=== PATIENT | female | born 1985 | race African-American/Black ===

== ENCOUNTER 2016-06-04 13:20 | Emergency (ER) ==
[2016-06-04 13:29] VITALS: BP 169/90
[2016-06-04 14:48] LABS: MANUAL DIFF NEEDED? NO
--- NOTE | 2016-06-04 14:49 | Diag Imaging Result Document ---
PROCEDURE NAME: CHEST-2 VIEWS - 06/04/2016 CHEST, TWO VIEWS: INDICATION: Shortness of breath. COMPARISON: 07/18/2015. FINDINGS: Reduced lung volumes are again demonstrated. The heart size is within normal limits. There is evidence of previous granulomatous infection. No focal consolidation, effusion, or pneumothorax is identified. IMPRESSION: 1. Stable chest with reduced lung volumes and evidence of previous granulomatous infection. 2. No acute abnormalities are appreciated.
[2016-06-04 14:56] LABS: BASO% 0.4 % (0.0-0.8); EOS# 0.07 X1000 (0.0-0.7); EOS% 1.3 % (0.0-10.0); HEMOGLOBIN 12.6 g/dL (12.0-16.0); IMM GRAN# 0.01 X1000 (0.0-0.04); IMM GRAN% 0.2 % (0.0-0.5); LYMPH# 2.25 X1000 (1.2-3.4); LYMPH% 41.3 % (20.5-51.1); MCH 25.6 PG (27-31); MCHC 31.5 g/dL (33-37); MCV 81.3 FL (81-99); MONO# 0.44 X1000 (0.11-0.59); MONO% 8.1 % (1.7-9.3); MPV 9.6 FL (7.4-10.4); NEUT% 48.7 % (42.2-75.2); PLT 350 X1000 (130-400); RBC 4.92 XMIL (4.2-5.4)
[2016-06-04 15:07] LABS: INR 1.03 (0.86-1.15); PROTIME 13.8 Seconds (12.1-15.5)
[2016-06-04 15:09] LABS: AGAP 8; ALBUMIN 3.6 g/dL (3.5-5.0); ALKALINE PHOSPHATASE 85 U/L (32-104); BUN 8 mg/dL (8-22); CALCIUM 9.3 mg/dL (8.8-10.2); CHLORIDE 103 mmol/L (98-107); CK PROFILE 91 U/L (24-173); COSMO 274; GOT 16 U/L (10-30); GPT 22 U/L (10-36); MAGNESIUM 1.9 mg/dL (1.5-2.7); POTASSIUM 3.9 mmol/L (3.5-5.1); SODIUM 138 mmol/L (136-145); TCO2 26 mmol/L (25-35); TOTAL PROTEIN 7.9 g/dL (6.3-8.3)
--- NOTE | 2016-06-04 15:43 | PROVIDER DOCUMENTATION ---
HPI-General Adult <Becca Valles - Last Filed: 06/04/16 16:06> - General Source: patient - History of Present Illness -Gen Adult Nature of Presenting Problems: Pt. is morbidly obese female that presents with c/o Chest pressure with SOB and nausea that has been present for two days. Pt. reports today it got worse and when she called her doctor was told to come to the ED. Pt. denies any diaphoresis or vomiting. Pt. reports her SOB is worse when Lying flat. Location of Pain/Injury: reports: chest. denies: head, face, mouth, neck, upper extremity, hand(s), abdomen, back, pelvis, genitalia, lower extremity, feet, upper body, lower body, generalized Pain Radiation: reports: no radiation Quality of Pain: reports: pressure. denies: aching, burning, cramping, dull, fullness, indigestion, sharp, stabbing, tearing, throbbing, tightness Severity: reports: mild. denies: moderate, severe Onset/Duration: reports: gradual, 2 days ago Timing: reports: still present. denies: improving, gone now, resolved prior to arrival, intermittent, constant, changing over time, getting worse Context/Activities at Onset: reports: none. denies: recent emotional stress, recent physical stress, recent trauma history, possible bad food, cold exposure , out of country travel Modifying Factors: improves with: nothing Associated Symptoms: reports: chest pain, nausea, shortness of breath. denies: anxiety, arm pain, back/neck pain, constipation, cough, diaphoresis, diarrhea, dizziness, EENT symptoms, fatigue, fever/chills, genitourinary problems, headaches, heartburn, joint pain, loss of appetite, malaise, muscle aches, sinus congestion/drainage, rash, seizure, sensory/motor loss, pain with inspiration, swelling/mass in abdomen, syncope, vomiting, weakness, trouble walking Similar Symptoms Previously?: Yes Recently seen or treated by another doctor?: No <Jeanette Wheeler - Last Filed: 06/04/16 17:18> - General Chief Complaint: Shortness of Breath Stated Complaint: CHEST PAIN/SOB Time Seen by Provider: 06/04/16 15:32 Allergies/Adverse Reactions: Patient Allergies Allergy/AdvReac Type Severity Reaction Status Date / Time No Known Allergies Allergy Verified 07/18/15 20:59 Home Medications: Megestrol Acetate 40 mg PO DAILY 12/13/14 Iron 18 mg PO DAILY 06/06/15 Review of Systems - Adult - REVIEW OF SYSTEMS - ADULT Constitutional: reports: see HPI. denies: chills, fever, fatique Eyes: reports: see HPI. denies: discharge, blurred vision, double vision, eye pain Ears, Nose, Mouth & Throat: reports: see HPI. denies: ear pain, hearing loss, nose pain, loose teeth, mouth swelling, throat swelling Cardiovascular: reports: see HPI, chest pain. denies: edema, irregular heart rate, palpitations, syncope Respiratory: reports: see HPI, shortness of breath. denies: chronic cough, cough, dyspnea on exertion, pleurisy, wheezing Gastrointestinal: reports: see HPI, nausea. denies: abdominal pain, hematemesis , diarrhea, difficulty swallowing, frequent heartburn, vomiting Genitourinary: reports: see HPI. denies: dysuria, discharge, flank pain, hematuria, hesitency, urgency Musculoskeletal: reports: see HPI. denies: bone pain, back pain, joint pain, joint swelling, muscle aches, neck pain Integumentary: reports: see HPI. denies: hives, hair loss, itching, rash, skin thickening Neurological: reports: see HPI. denies: ataxia, headache/migraines, numbness, paresthesia, seizure, tremors Psychiatric: reports: see HPI. denies: anxiety, depression, emotional problems , insomnia, panic attacks, suicidal thoughts Endocrine: reports: see HPI. denies: excessive sweating, cold intolerance, heat intolerance, increased hunger <Jeanette Wheeler - Last Filed: 06/04/16 17:18> Past History - Adult - PAST MEDICAL HISTORY-ADULT Review of Records: reports: Old Records Reviewed, Nursing Assessment Review, Medications Reviewed, Social history reviewed & non-contributory. Major Childhood Illnesses: reports: denies history Cardiovascular: reports: denies history Respiratory: reports: other (Pulmonary Embolus) Gastrointestinal: reports: denies history Obstetrical/Gynecological: reports: denies history Genitourinary: reports: denies history Musculoskeletal: reports: denies history Neurological: reports: denies history Endocrine/Immune: reports: denies history Other Conditions: reports: denies history - PRIOR SURGERIES/PROCEDURES Surgical/Procedure History: reports: none - IMMUNIZATION STATUS Childhood Immunizations: See Nurse Assessment Flu Vaccine: See Nurse Assessment - FAMILY HISTORY Family History: reviewed, not pertinent <Jeanette Wheeler - Last Filed: 06/04/16 17:18> Physical Exam-General - PHYSICAL EXAM-ADULT Initial Vital Signs Reviewed: Yes - CONSTITUTIONAL General Appearance: alert, mild distress, obese. negative: thin, anxious, lethargic, slow to respond, obtunded, combative - EYES Eyes: PERRL/EOMI, pink conjunctivae. negative: conjuctival exudate, photophobia , scleral icterus, subconjunctival hemorrhage - HEAD, EARS, NOSE, MOUTH & THROAT HENMT: normocephalic/atraumatic, moist mucous membranes, normal ENT inspection. negative: angioedema, frontal tenderness, maxillary tenderness - NECK Neck: non-tender, full range of motion, supple, normal inspection. negative: lymphadenopathy, trachial deviation, thyromegaly - RESPIRATORY Respiratory: lungs clear, normal breath sounds. negative: crackles, rales, rhonchi, stridor, wheezing - CARDIOVASCULAR Cardiovascular: normal peripheral pulses, regular rate, rhythm, no edema, no JVD , no murmur. negative: extra beats, friction rub, irregularly irregular - CHEST (BREASTS) Chest/Breast: deferred - GASTROINTESTINAL (ABDOMEN) Abdominal Exam: normal bowel sounds, non tender, soft. negative: distended, guarding, rigid, rebound, tenderness, hernia, mass - GENITOURINARY Female Genitalia/Pelvic Exam: deferred Rectal Exam: deferred Hemoccult Exam: deferred - LYMPHATIC Lymphatic: no adenopathy. negative: axilla node tender, cervical node tenderness - MUSCULOSKELETAL Back Exam: normal inspection, no CVA tenderness, no vertebral tenderness. negative: ecchymosis, muscle spasm, vertebral tenderness Extremity: normal range of motion, non-tender, normal gait, normal inspection. negative: deformity, erythema, inflammation, swelling, tenderness Peripheral Pulses: radial (R): 2+, radial (L): 2+ - SKIN Integumentary: normal color, normal turgor, warm/dry. negative: cyanosis, diaphoresis, ecchymosis, erythema, jaundice, mottled, pallor, petechiae, purpura , rash, swelling, tenderness - NEUROLOGIC Neurologic: grossly normal, no motor/sensory deficits. negative: aphasia, facial droop, focal weakness, motor weakness, sensory deficit - PSYCHIATRIC Psych/Mental Status: normal mood/affect, normal thought content, normal thought process, oriented x 3. negative: anxious, paranoid, tearful <Jeanette Wheeler - Last Filed: 06/04/16 17:18> Progress - EKG 1 Time of EKG reading by physician:: 14:46 EKG Read and Signed by:: Marcos Olivas EKG Interpretation (*Must complete 3 of following elements*): Abnormal (cannot rule out anterior infarct, age undetermined) Rate: 94 Rhythm: normal sinus rhythm Comments: inferior infarct, age undetermined; <Becca Valles - Last Filed: 06/04/16 16:06> - PLAN OF CARE/RESULTS Progress/Plan/Lab Results: Discussed results and plan of care with patient. Patient agrees with plan and verbalizes understanding. Vital Signs Temp Pulse Resp BP Pulse Ox 06/04/16 13:26 98.7 F 106 H 18 169/90 99 No Known Allergies Allergy (Verified 07/18/15 20:59) Megestrol Acetate 40 mg PO DAILY 12/13/14 Iron 18 mg PO DAILY 06/06/15 Laboratory 06/04/16 06/04/16 06/04/16 14:38 14:38 14:38 WBC 5.45 RBC 4.92 Hgb 12.6 Hct 40.0 MCV 81.3 MCH 25.6 L MCHC 31.5 L RDW Std Deviation 13.8 Plt Count 350 MPV 9.6 Immature Gran % (Auto) 0.2 Neut % (Auto) 48.7 Lymph % (Auto) 41.3 [place] % (Auto) 8.1 Eos % (Auto) 1.3 Baso % (Auto) 0.4 Immature Gran # (Auto) 0.01 Neut # (Auto) 2.66 Lymph # (Auto) 2.25 [place] # (Auto) 0.44 Eos # (Auto) 0.07 Baso # (Auto) 0.02 PT 13.8 INR 1.03 APTT (Factor Assay) 26.0 D-Dimer 0.31 Sodium Potassium Chloride Carbon Dioxide Anion Gap BUN Creatinine Estimated GFR/1.73 m2 BUN/Creatinine Ratio Glucose Calculated Osmolality Calcium Magnesium Total Bilirubin AST ALT Alkaline Phosphatase Creatine Kinase Troponin T Ilj-O-Tacpivjnqft Pept 6 Total Protein Albumin Globulin Albumin/Globulin Ratio 06/04/16 06/04/16 14:38 14:38 WBC RBC Hgb Hct MCV MCH MCHC RDW Std Deviation Plt Count MPV Immature Gran % (Auto) Neut % (Auto) Lymph % (Auto) [place] % (Auto) Eos % (Auto) Baso % (Auto) Immature Gran # (Auto) Neut # (Auto) Lymph # (Auto) [place] # (Auto) Eos # (Auto) Baso # (Auto) PT INR APTT (Factor Assay) D-Dimer Sodium 138 Potassium 3.9 Chloride 103 Carbon Dioxide 26 Anion Gap 8 BUN 8 Creatinine 0.7 Estimated GFR/1.73 m2 > 60 BUN/Creatinine Ratio 11 Glucose 98 Calculated Osmolality 274 Calcium 9.3 Magnesium 1.9 Total Bilirubin 0.30 AST 16 ALT 22 Alkaline Phosphatase 85 Creatine Kinase 91 Troponin T < 0.010 Knp-H-Zzysvynmfde Pept Total Protein 7.9 Albumin 3.6 Globulin 4.0 Albumin/Globulin Ratio 1.0 Orders Category Date Time Status Cardiac Monitoring DIRECTED Care 06/04/16 14:10 Active CHEST-2 VIEWS [RAD] Stat Exams 06/04/16 14:10 Draft CBC WITH ELECTRONIC DIFF [HEME] Stat Lab 06/04/16 14:38 Completed CK PROFILE [SP CHEM] Stat Lab 06/04/16 14:38 Completed COMPREHENSIVE METABOLIC PANEL [CHEM] Stat Lab 06/04/16 14:38 Completed D-DIMER PL [COAG] Stat Lab 06/04/16 14:38 Completed MAGNESIUM [CHEM] Stat Lab 06/04/16 14:38 Completed PRO B-NATRIURETIC PEPTIDE Stat Lab 06/04/16 14:38 Completed PROTIME WITH INR PL [COAG] Stat Lab 06/04/16 14:[address] [COAG] Stat Lab 06/04/16 14:38 Completed TROPONIN T Stat Lab 06/04/16 14:38 Completed EKG [EKG] Stat Ther 06/04/16 14:10 Ordered Laboratory Tests 06/04/16 06/04/16 06/04/16 14:38 14:38 14:38 WBC RBC Hgb Hct MCV MCH MCHC RDW Std Deviation Plt Count MPV Immature Gran % (Auto) Neut % (Auto) Lymph % (Auto) [place] % (Auto) Eos % (Auto) Baso % (Auto) Immature Gran # (Auto) Neut # (Auto) Lymph # (Auto) [place] # (Auto) Eos # (Auto) Baso # (Auto) PT INR APTT (Factor Assay) D-Dimer Sodium 138 Potassium 3.9 Chloride 103 Carbon Dioxide 26 Anion Gap 8 BUN 8 Creatinine 0.7 Estimated GFR/1.73 m2 > 60 BUN/Creatinine Ratio 11 Glucose 98 Calculated Osmolality 274 Calcium 9.3 Magnesium 1.9 Total Bilirubin 0.30 AST 16 ALT 22 Alkaline Phosphatase 85 Creatine Kinase 91 Troponin T < 0.010 Agu-B-Nqaxdedrbvq Pept 6 Total Protein 7.9 Albumin 3.6 Globulin 4.0 Albumin/Globulin Ratio 1.0 06/04/16 06/04/16 14:38 14:38 WBC 5.45 RBC 4.92 Hgb 12.6 Hct 40.0 MCV 81.3 MCH 25.6 L MCHC 31.5 L RDW Std Deviation 13.8 Plt Count 350 MPV 9.6 Immature Gran % (Auto) 0.2 Neut % (Auto) 48.7 Lymph % (Auto) 41.3 [place] % (Auto) 8.1 Eos % (Auto) 1.3 Baso % (Auto) 0.4 Immature Gran # (Auto) 0.01 Neut # (Auto) 2.66 Lymph # (Auto) 2.25 [place] # (Auto) 0.44 Eos # (Auto) 0.07 Baso # (Auto) 0.02 PT 13.8 INR 1.03 APTT (Factor Assay) 26.0 D-Dimer 0.31 Sodium Potassium Chloride Carbon Dioxide Anion Gap BUN Creatinine Estimated GFR/1.73 m2 BUN/Creatinine Ratio Glucose Calculated Osmolality Calcium Magnesium Total Bilirubin AST ALT Alkaline Phosphatase Creatine Kinase Troponin T Tow-J-Fiksphcxsik Pept Total Protein Albumin Globulin Albumin/Globulin Ratio - XRAY 1 XRAY Study: Chest XRAY Interpretation: Stable granuloma, NAD ([place]) <Jeanette Wheeler - Last Filed: 06/04/16 17:18> Departure <Becca Valles - Last Filed: 06/04/16 16:06> - Departure Time of Disposition Order: 17:17 Certified Medical Emergency: Emergent <Jeanette Wheeler - Last Filed: 06/04/16 17:18> - Departure DIAGNOSIS: Shortness of breath Disposition: HOME 01 Condition: Stable Additional Instructions: Follow up with primary care physician Return to ED for any concerns or worsening of symptoms ED Follow Up Instructions: You have been treated by a care provider in the Emergency Department. These instructions are being provided to you so you can have an understanding of how to care for yourself upon discharge. Upon discharge from the Emergency Department, you are responsible for making arrangements for follow-up care by a physician of your choice. Take all prescribed medications as directed. Return to the Emergency Department immediately for any new or worsening symptoms. You may call the Physician Referral phone number at [phone] to obtain a list of Physicians who are taking new patients. Attestation - Physician/ Mid-level Attestation Patient care was provided by Mid-level provider ([employer]CH[employer]IC/PA):: Yes Mid-level provider:: Jeanette Wheeler Mid-level documentation review:: The Mid-level provider documentation, treatment plan and medical decision making was reviewed by the physician who agrees with all treatment and medical decision making by the MLP. <Jeanette Wheeler - Last Filed: 06/04/16 17:18> Physician Attestation
--- NOTE | 2016-06-04 19:30 | EKG Report ---
Test Performed on : 06/04/2016 2:46:22 PM Test Reason : CHEST PAIN Blood Pressure : / mmHG Vent. Rate : 094 BPM Atrial Rate : 094 BPM P-R Int : 120 ms QRS Dur : 086 ms QT Int : 356 ms P-R-T Axes : 000 -21 -20 degrees QTc Int : 445 ms Normal sinus rhythm. Inferior infarct , age undetermined Cannot rule out Anterior infarct , age undetermined Abnormal ECG When compared with ECG of 18-JUL-2015 20:48, No significant change was found Unconfirmed Result
== END 2016-06-04 18:47 | disposition home or self-care (01) ==
LOC: P.ED 13:20
DX: R06.02 Shortness of breath (principal); R94.31 Abnormal electrocardiogram [ECG] [EKG]; R07.89 Other chest pain; R11.0 Nausea; E66.01 Morbid (severe) obesity due to excess calories; Z79.899 Other long term (current) drug therapy; Z86.711 Personal history of pulmonary embolism
CPT/HCPCS: 71020; 80053; 82550; 83735; 83880; 84484; 85025; 85379; 85610; 85730; 93005; 99283

== ENCOUNTER 2016-08-13 07:55 | Emergency (ER) ==
[2016-08-13 08:17] VITALS: BP 151/95
[2016-08-13 09:13] LABS: URINE MICRO REVIEW NEEDED? NO; URINE SOURCE CATH
[2016-08-13 09:22] LABS: BILIRUBIN URINE NEGATIVE (NEGATIVE); BLOOD URINE NEGATIVE (NEGATIVE); COLOR YELLOW; GLUCOSE URINE NEGATIVE (NEGATIVE); LEUKOCYTES URINE NEGATIVE (NEGATIVE); NITRITE URINE NEGATIVE (NEGATIVE); PH URINE 5.5; PROTEIN URINE NEGATIVE (NEGATIVE); SP GRAVITY URINE 1.023; TURBIDITY URINE HAZY (CLEAR); UROBILINOGEN URINE NORMAL (NORMAL)
[2016-08-13 09:24] LABS: UR EPITHELIAL CELLS <10 /HPF (<10); URINE BACTERIA 3+ /HPF; URINE CULTURE NEEDED? YES; URINE RBC <10 /HPF (<10); URINE WBC <10 /HPF (<10)
[2016-08-13 09:39] LABS: BASO% 0.2 % (0.0-0.8); EOS# 0.04 X1000 (0.0-0.7); EOS% 0.9 % (0.0-10.0); HEMATOCRIT 42.7 % (37.0-47.0); HEMOGLOBIN 13.4 g/dL (12.0-16.0); LYMPH% 47.9 % (20.5-51.1); MANUAL DIFF NEEDED? NO; MCH 24.9 PG (27-31); MCHC 31.4 g/dL (33-37); MCV 79.2 FL (81-99); MONO# 0.33 X1000 (0.11-0.59); MONO% 7.5 % (1.7-9.3); MPV 9.8 FL (7.4-10.4); NEUT% 43.5 % (42.2-75.2); PLT 345 X1000 (130-400); RBC 5.39 XMIL (4.2-5.4)
[2016-08-13 10:03] LABS: AGAP 15; ALBUMIN 3.7 g/dL (3.5-5.0); ALKALINE PHOSPHATASE 90 U/L (32-104); AMYLASE 40 U/L (20-200); BUN 7 mg/dL (8-22); CALCIUM 9.3 mg/dL (8.8-10.2); CHLORIDE 102 mmol/L (98-107); COSMO 276; GOT 16 U/L (10-30); GPT 23 U/L (10-36); LIPASE 13 U/L (13-60); POTASSIUM 3.8 mmol/L (3.5-5.1); SODIUM 139 mmol/L (136-145); TCO2 22 mmol/L (25-35); TOTAL BILIRUBIN 0.62 mg/dL (0.20-1.00); TOTAL PROTEIN 8.3 g/dL (6.3-8.3)
--- NOTE | 2016-08-13 10:09 | PROVIDER DOCUMENTATION ---
HPI-Abdominal Pain/GI Problem - General Chief Complaint: Abdominal Pain Stated Complaint: ABD PAIN,NAUSEA Time Seen by Provider: 08/13/16 09:59 Source: patient Allergies/Adverse Reactions: Patient Allergies Allergy/AdvReac Type Severity Reaction Status Date / Time No Known Allergies Allergy Verified 08/13/16 09:55 Home Medications: Home Medication List Medication Instructions Recorded Confirmed Last Taken Type Omeprazole [Prilosec] 20 mg PO BID #28 capsule 08/13/16 Unknown Rx - History of Present Illness-ABD Nature of Presenting Problems: 1 week of epigastric and LUQ pain. Mild nausea, occ vomiting- . Feels like a pressure or knot. Sick with cough 2 weeks ago - treated with antibioitics. cough resolved but discomfort persistent. No fever. Abdominal Pain Onset Location: reports: LUQ, epigastric Pain Radiation: reports: no radiation Quality of Pain: reports: pressure Severity in ED: reports: moderate Onset/Duration: reports: 1 week ago Associated Symptoms: reports: nausea. denies: fever/chills Last BM: this morning Dark Stools Present?: reports: none noticed Rectal Bleeding: reports: none Review of Systems - Adult - REVIEW OF SYSTEMS - ADULT Constitutional: reports: no symptoms reported Eyes: reports: no symptoms reported Ears, Nose, Mouth & Throat: reports: no symptoms reported Cardiovascular: reports: no symptoms reported Respiratory: reports: cough (resolved) Gastrointestinal: reports: see HPI Genitourinary: reports: no symptoms reported Musculoskeletal: reports: no symptoms reported Integumentary: reports: no symptoms reported Neurological: reports: no symptoms reported Psychiatric: reports: no symptoms reported Endocrine: reports: no symptoms reported Past History - Adult - PAST MEDICAL HISTORY-ADULT Review of Records: reports: Nursing Assessment Review, Medications Reviewed Major Childhood Illnesses: reports: denies history Cardiovascular: reports: denies history Respiratory: reports: other (Pulmonary Embolus) Gastrointestinal: reports: denies history Obstetrical/Gynecological: reports: denies history Genitourinary: reports: denies history Musculoskeletal: reports: denies history Neurological: reports: denies history Endocrine/Immune: reports: denies history Other Conditions: reports: denies history - PRIOR SURGERIES/PROCEDURES Surgical/Procedure History: reports: none - IMMUNIZATION STATUS Childhood Immunizations: See Nurse Assessment Flu Vaccine: See Nurse Assessment - FAMILY HISTORY Family History: reviewed, not pertinent Physical Exam-General - PHYSICAL EXAM-ADULT Initial Vital Signs Reviewed: Yes - CONSTITUTIONAL General Appearance: appears well, alert, no apparent distress, obese - EYES Eyes: PERRL/EOMI - HEAD, EARS, NOSE, MOUTH & THROAT HENMT: moist mucous membranes, normal ENT inspection - NECK Neck: non-tender, full range of motion, supple, normal inspection - RESPIRATORY Respiratory: chest non-tender, lungs clear, normal breath sounds - CARDIOVASCULAR Cardiovascular: regular rate, rhythm, no edema, no gallop, no JVD, no murmur - CHEST (BREASTS) Chest/Breast: no tenderness - GASTROINTESTINAL (ABDOMEN) Abdominal Exam: normal bowel sounds, soft, no organomegaly, tenderness (mild epigastric and LUQ tenderness w/o rebound) - MUSCULOSKELETAL Back Exam: normal inspection, no CVA tenderness, no vertebral tenderness Extremity: normal range of motion, non-tender - SKIN Integumentary: normal color, normal turgor, warm/dry - NEUROLOGIC Neurologic: grossly normal, no motor/sensory deficits - PSYCHIATRIC Psych/Mental Status: oriented x 3 Progress - PLAN OF CARE/RESULTS Progress/Plan/Lab Results: Laboratory Tests 08/13/16 08/13/16 08/13/16 08:36 08:46 08:59 WBC 4.38 L RBC 5.39 Hgb 13.4 Hct 42.7 MCV 79.2 L MCH 24.9 L MCHC 31.4 L RDW Std Deviation 14.9 H Plt Count 345 MPV 9.8 Immature Gran % (Auto) 0.0 Neut % (Auto) 43.5 Lymph % (Auto) 47.9 [place] % (Auto) 7.5 Eos % (Auto) 0.9 Baso % (Auto) 0.2 Immature Gran # (Auto) 0.00 Neut # (Auto) 1.90 Lymph # (Auto) 2.10 [place] # (Auto) 0.33 Eos # (Auto) 0.04 Baso # (Auto) 0.01 Sodium 139 Potassium 3.8 Chloride 102 Carbon Dioxide 22 L Anion Gap 15 BUN 7 L Creatinine 0.6 Estimated GFR/1.73 m2 > 60 BUN/Creatinine Ratio 12 Glucose 100 Calculated Osmolality 276 Calcium 9.3 Total Bilirubin 0.62 AST 16 ALT 23 Alkaline Phosphatase 90 Total Protein 8.3 Albumin 3.7 Globulin 4.6 Albumin/Globulin Ratio 0.8 Amylase 40 Lipase 13 Urine Source CATH Urine Color YELLOW Urine Turbidity HAZY Urine pH 5.5 Ur Specific [place] 1.023 Urine Protein NEGATIVE Ur Glucose (Stick) NEGATIVE Ur Ketones (Stick) NEGATIVE Urine Blood NEGATIVE Urine Nitrite NEGATIVE Urine Bilirubin NEGATIVE Urobilinogen Dipstick NORMAL Urine Leukocytes NEGATIVE Urine WBC (Auto) <10 Urine RBC (Auto) <10 U Epithel Cells (Auto) <10 Urine Bacteria (Auto) 3+ Orders Category Date Time Status ED: Urine Bedside ORDERED Care 08/13/16 08:26 Active NPO Diet 08/13/16 08:26 Active RENAL STONE SEARCH [CT] Stat Exams 08/13/16 08:38 Taken AMYLASE [CHEM] Stat Lab 08/13/16 08:36 Completed CBC WITH ELECTRONIC DIFF [HEME] Stat Lab 08/13/16 08:59 Completed COMPREHENSIVE METABOLIC PANEL [CHEM] Stat Lab 08/13/16 08:36 Completed LIPASE [CHEM] Stat Lab 08/13/16 08:36 Completed URINALYSIS W/POSS RFLX CULT [URINALYSIS] Stat Lab 08/13/16 08:46 Completed URINE CULTURE [RM] Routine Lab 08/13/16 10:00 Received Famotidine [Pepcid] Med 08/13/16 11:25 Discontinued 40 mg PO NOW ONE Lido/Oswald Alk/Al&mg Hydrox [G.i. Cocktail] Med 08/13/16 11:25 Discontinued 30 ml PO NOW ONE Vital Signs Temp Pulse Resp BP Pulse Ox 08/13/16 08:16 98.5 F 92 H 18 151/95 99 No Known Allergies Allergy (Verified 08/13/16 09:55) Omeprazole [Prilosec] 20 mg PO BID #28 capsule 08/13/16 Dietary Diet NPO Start TueAug 13 08 Laboratory 08/13/16 08/13/16 08/13/16 08:59 08:46 08:36 WBC 4.38 L RBC 5.39 Hgb 13.4 Hct 42.7 MCV 79.2 L MCH 24.9 L MCHC 31.4 L RDW Std Deviation 14.9 H Plt Count 345 MPV 9.8 Immature Gran % (Auto) 0.0 Neut % (Auto) 43.5 Lymph % (Auto) 47.9 [place] % (Auto) 7.5 Eos % (Auto) 0.9 Baso % (Auto) 0.2 Immature Gran # (Auto) 0.00 Neut # (Auto) 1.90 Lymph # (Auto) 2.10 [place] # (Auto) 0.33 Eos # (Auto) 0.04 Baso # (Auto) 0.01 Sodium 139 Potassium 3.8 Chloride 102 Carbon Dioxide 22 L Anion Gap 15 BUN 7 L Creatinine 0.6 Estimated GFR/1.73 m2 > 60 BUN/Creatinine Ratio 12 Glucose 100 Calculated Osmolality 276 Calcium 9.3 Total Bilirubin 0.62 AST 16 ALT 23 Alkaline Phosphatase 90 Total Protein 8.3 Albumin 3.7 Globulin 4.6 Albumin/Globulin Ratio 0.8 Amylase 40 Lipase 13 Urine Source CATH Urine Color YELLOW Urine Turbidity HAZY Urine pH 5.5 Ur Specific [place] 1.023 Urine Protein NEGATIVE Ur Glucose (Stick) NEGATIVE Ur Ketones (Stick) NEGATIVE Urine Blood NEGATIVE Urine Nitrite NEGATIVE Urine Bilirubin NEGATIVE Urobilinogen Dipstick NORMAL Urine Leukocytes NEGATIVE Urine WBC (Auto) <10 Urine RBC (Auto) <10 U Epithel Cells (Auto) <10 Urine Bacteria (Auto) 3+ - CT/MRI 1 CT Study: Abdomen Impression: Normal (no acute findings) - CHANGE OF SHIFT REPORT (ED Provider) Tentative Impression of Patient: suspect gastritis following antibiotics Departure - Departure Time of Disposition Order: 11:30 DIAGNOSIS: Gastritis Disposition: HOME 01 Certified Medical Emergency: Emergent Condition: Stable Additional Instructions: Avoid stomach irritants like caffeine, coffee, alcohol. Take omeprazole( prilosec )daily for 10 days. Drink plenty of fluids. Follow up with your doctor if your symptoms are not much better in 3-4 days. Return to emergency if much worse, unable to keep down fluids or problems with breathing ED Follow Up Instructions: You have been treated by a care provider in the Emergency Department. These instructions are being provided to you so you can have an understanding of how to care for yourself upon discharge. Upon discharge from the Emergency Department, you are responsible for making arrangements for follow-up care by a physician of your choice. Take all prescribed medications as directed. Return to the Emergency Department immediately for any new or worsening symptoms. You may call the Physician Referral phone number at [phone] to obtain a list of Physicians who are taking new patients. Prescriptions: Omeprazole [Prilosec] 20 mg PO BID #28 capsule Referrals: Damon Amin MD [Primary Care Provider] -
[2016-08-13] MEDS ORDERED: PEPCID PO ONE (11:25)
[2016-08-13] MEDS ORDERED: G.I. COCKTAIL PO ONE (11:25)
--- NOTE | 2016-08-13 12:13 | Diag Imaging Result Document ---
PROCEDURE NAME: RENAL STONE SEARCH - 08/13/2016 CT ABDOMEN AND PELVIS WITHOUT CONTRAST: COMPARISON: None available. FINDINGS: There is excessive streak artifact related to body habitus, which somewhat limits sensitivity of this study. There is probably diffuse hepatic steatosis. No definite renal or ureteral stones are identified given the limitations of the study. There is no evidence of hydronephrosis. The appendix is identified and appears normal. The urinary bladder is grossly unremarkable. The remainder of the solid viscera of the abdomen and pelvis and the remainder of the GI tract is essentially unremarkable. No definite focal inflammatory changes, free abdominal gas, or free fluid is identified. IMPRESSION: 1. Limited study due to body habitus. 2. No renal or ureteral stones identified and no evidence of acute obstructive uropathy. 3. Normal appendix. 4. No other definite acute pathology given the limitations of this study.
== END 2016-08-13 12:03 | disposition home or self-care (01) ==
LOC: ED 07:55
DX: K29.70 Gastritis, unspecified, without bleeding (principal); R10.13 Epigastric pain; R10.12 Left upper quadrant pain; R11.0 Nausea; R05 Cough; Z86.711 Personal history of pulmonary embolism; E66.9 Obesity, unspecified
CPT/HCPCS: 74176; 80053; 81001; 82150; 83690; 85025; 87088; 99282

== ENCOUNTER 2016-12-27 09:37 | Inpatient (IN) ==
[2016-12-27] MEDS ORDERED: ZOFRAN IV ONE (10:27)
[2016-12-27] MEDS ORDERED: PROTONIX IV ONE (10:27)
[2016-12-27] MEDS ORDERED: SODIUM CHLORIDE 0.9% INJ ONE (10:27)
[2016-12-27] MEDS ORDERED: NS 1,000 ML IV ONE (10:27)
[2016-12-27 10:39] LABS: MANUAL DIFF NEEDED? NO
[2016-12-27 10:41] LABS: BASO% 0.8 % (0.0-0.8); EOS% 2.7 % (0.0-10.0); HEMATOCRIT 44.9 % (37.0-47.0); HEMOGLOBIN 14.6 g/dL (12.0-16.0); LYMPH# 1.26 X1000 (1.2-3.4); LYMPH% 34.6 % (20.5-51.1); MCH 25.8 PG (27-31); MCHC 32.5 g/dL (33-37); MCV 79.3 FL (81-99); MONO# 0.57 X1000 (0.11-0.59); MONO% 15.7 % (1.7-9.3); MPV 11.6 FL (7.4-10.4); NEUT% 46.2 % (42.2-75.2); PLT 275 X1000 (130-400); RBC 5.66 XMIL (4.2-5.4)
[2016-12-27 11:00] LABS: AGAP 16; ALKALINE PHOSPHATASE 84 U/L (32-104); AMYLASE 83 U/L (20-200); BUN 7 mg/dL (8-22); CHLORIDE 99 mmol/L (98-107); COSMO 284; GOT 47 U/L (10-30); GPT 68 U/L (10-36); LIPASE 120 U/L (13-60); POTASSIUM 3.4 mmol/L (3.5-5.1); SODIUM 143 mmol/L (136-145); TCO2 28 mmol/L (25-35); TOTAL BILIRUBIN 0.72 mg/dL (0.20-1.00); TOTAL PROTEIN 8.5 g/dL (6.3-8.3)
[2016-12-27 11:17] LABS: URINE SOURCE CLEAN CATCH
[2016-12-27 11:21] LABS: BILIRUBIN URINE SMALL (NEGATIVE); BLOOD URINE NEGATIVE (NEGATIVE); COLOR YELLOW; GLUCOSE URINE TRACE mg/dL (NEGATIVE); LEUKOCYTES URINE NEGATIVE (NEGATIVE); NITRITE URINE NEGATIVE (NEGATIVE); PROTEIN URINE 300 mg/dL (NEGATIVE); SP GRAVITY URINE 1.026; TURBIDITY URINE TURBID (CLEAR); UROBILINOGEN URINE 6 mg/dL (NORMAL)
[2016-12-27 11:23] LABS: URINE MICRO REVIEW NEEDED? YES
[2016-12-27 11:24] LABS: UR EPITHELIAL CELLS >10 /HPF (<10); URINE BACTERIA 1+ /HPF; URINE CULTURE NEEDED? YES
--- NOTE | 2016-12-27 12:10 | Diag Imaging Result Doc PS360 ---
CT ABD/PELVIS W/ IV CONT ONLY - 12/27/2016 INDICATION: s/p gastric sleeve pain vomiting TECHNIQUE: A CT dose reduction protocol was used. COMPARISON: 08/13/2016 FINDINGS: The lung bases are clear and the heart size is normal. There are findings compatible with gastric sleeve procedure. No bowel obstruction or inflammation. No free air or free fluid. Normal appendix. The liver, gallbladder, spleen, pancreas, adrenals, and kidneys are normal. Urinary bladder, uterus, ovaries, and rectum are normal. There are moderate degenerative changes of the spine. No acute or suspicious bony lesion. IMPRESSION: No acute disease or complication. Electronically signed by Alex Evans 12/27/2016 12:07 PM
--- NOTE | 2016-12-27 14:04 | PROVIDER DOCUMENTATION ---
This chart was entered by Mian Wick Scribe, acting as scribe for Gretchen Gore MD. HPI-Abdominal Pain/GI Problem - General Chief Complaint: Nausea/Vomiting Stated Complaint: NAUSEA,VOMITING Time Seen by Provider: 12/27/16 10:23 Source: patient Allergies/Adverse Reactions: Patient Allergies Allergy/AdvReac Type Severity Reaction Status Date / Time Penicillins Allergy Unknown Verified 12/27/16 10:30 Home Medications: Home Medication List Medication Instructions Recorded Confirmed Last Taken Type Omeprazole [Prilosec] 20 mg PO BID #28 capsule 08/13/16 Unknown Rx Promethazine HCl [Promethazine HCl] 12/27/16 Unknown History Sucralfate [Carafate] 12/27/16 Unknown History - History of Present Illness-ABD Nature of Presenting Problems: Patient is a 31 y/o F that presents with constant n/v since gastric sleeve procedure was performed at [facility] on 12/08/16. Patient reports having a 30lb plus weight loss since procedure. Reports abdominal pain only when vomiting. Patient denies chills/fever, diarrhea, or shortness breath/chest pain. patient reports darker than normal vomit but denies coffee ground emesis. Patient was advised by PCP to come to the ER for evaluation. reports dark stools as well but not tarry appearing Abdominal Pain Onset Location: reports: generalized abdomen Quality of Pain: reports: aching, cramping Severity in ED: reports: moderate Onset/Duration: reports: gradual, other (2 weeks ago) Timing: reports: still present, constant Activities at Onset: reports: other (recent gastric sleeve 12/08/16) Modifying Factors: worse with: eating Associated Symptoms: reports: nausea, vomiting. denies: constipation, diarrhea , EENT symptoms, fever/chills, genitourinary problems, shortness of breath Similar Symptoms Previously?: No Recently seen or treated by another doctor?: Yes Review of Systems - Adult - REVIEW OF SYSTEMS - ADULT Constitutional: reports: weight loss (30lb weight loss). denies: chills, fever Eyes: reports: no symptoms reported Ears, Nose, Mouth & Throat: reports: no symptoms reported Cardiovascular: denies: chest pain, palpitations, syncope Respiratory: denies: cough, shortness of breath, wheezing Gastrointestinal: reports: abdominal pain (only when vomiting), nausea, vomiting . denies: diarrhea Genitourinary: denies: dysuria, frequency, hesitency Musculoskeletal: denies: back pain, joint pain, neck pain Integumentary: reports: no symptoms reported Neurological: reports: dizziness/vertigo. denies: headache/migraines Psychiatric: reports: no symptoms reported Endocrine: reports: no symptoms reported Hematologic/Lymphatic: reports: no symptoms reported Allergic/Immunologic: reports: no symptoms reported All Other Systems: Reviewed and Negative Past History - Adult - PAST MEDICAL HISTORY-ADULT Review of Records: reports: Old Records Reviewed, Nursing Assessment Review, Medications Reviewed Cardiovascular: reports: blood clots (PE) Endocrine/Immune: reports: anemia (on iron tablets) - PRIOR SURGERIES/PROCEDURES Surgical/Procedure History: reports: recent surgery (gastric sleeve on 12/08/16) , other (d&c, bladder surgery,) - IMMUNIZATION STATUS Childhood Immunizations: See Nurse Assessment Flu Vaccine: See Nurse Assessment - FAMILY HISTORY Family History: reviewed, not pertinent - SOCIAL HISTORY Smoking: quit greater than 1 year, cigarettes Alcohol Use Frequency: occasionally Living Situation: family Physical Exam-General - PHYSICAL EXAM-ADULT Initial Vital Signs Reviewed: Yes - CONSTITUTIONAL General Appearance: alert, mild distress, moderate distress, obese, other (ill appearing) - EYES Eyes: PERRL/EOMI, pale conjunctivae - HEAD, EARS, NOSE, MOUTH & THROAT HENMT: normocephalic/atraumatic, pharynx normal, other (oral mucosa dry) - NECK Neck: full range of motion, normal inspection - RESPIRATORY Respiratory: lungs clear, normal breath sounds, no respiratory distress, no accessory muscle use - CARDIOVASCULAR Cardiovascular: regular rate, rhythm, no edema, no murmur - GASTROINTESTINAL (ABDOMEN) Abdominal Exam: normal bowel sounds, non tender, soft, no organomegaly, no pulsatile mass - MUSCULOSKELETAL Back Exam: no CVA tenderness, no vertebral tenderness Extremity: normal range of motion, normal inspection, no pedal edema Peripheral Pulses: dorsalis-pedis (R): 2+, dorsalis-pedis (L): 2+ - SKIN Integumentary: normal color, warm/dry - NEUROLOGIC Neurologic: traffic expert II-XII nml as tested, no motor/sensory deficits - PSYCHIATRIC Psych/Mental Status: normal mood/affect, normal thought content, normal thought process, oriented x 3 Progress - PLAN OF CARE/RESULTS Progress/Plan/Lab Results: Vital Signs - 8 hr 12/27/16 09:42 Temperature 98.4 F Pulse Rate 94 H Respiratory Rate 14 Blood Pressure 139/84 O2 Sat by Pulse Oximetry 100 Vital Signs Temp Pulse Resp BP Pulse Ox 12/27/16 11:01 98.2 F 81 16 135/94 100 12/27/16 09:42 98.4 F 94 H 14 139/84 100 Penicillins Allergy (Verified 12/27/16 10:30) Unknown Omeprazole [Prilosec] 20 mg PO BID #28 capsule 08/13/16 Promethazine HCl [Promethazine HCl] 12/27/16 Sucralfate [Carafate] 12/27/16 Dietary Diet NPO Start TueDec 27 1027 Laboratory 12/27/16 12/27/16 12/27/16 11:09 10:33 10:33 WBC 3.64 L RBC 5.66 H Hgb 14.6 Hct 44.9 MCV 79.3 L MCH 25.8 L MCHC 32.5 L RDW Std Deviation 15.8 H Plt Count 275 MPV 11.6 H Immature Gran % (Auto) 0.0 Neut % (Auto) 46.2 Lymph % (Auto) 34.6 [place] % (Auto) 15.7 H Eos % (Auto) 2.7 Baso % (Auto) 0.8 Immature Gran # (Auto) 0.00 Neut # (Auto) 1.68 Lymph # (Auto) 1.26 [place] # (Auto) 0.57 Eos # (Auto) 0.10 Baso # (Auto) 0.03 Sodium 143 Potassium 3.4 L Chloride 99 Carbon Dioxide 28 Anion Gap 16 BUN 7 L Creatinine 1.0 H Estimated GFR/1.73 m2 > 60 BUN/Creatinine Ratio 7 Glucose 118 H Calculated Osmolality 284 Calcium 10.0 Total Bilirubin 0.72 AST 47 H ALT 68 H Alkaline Phosphatase 84 Total Protein 8.5 H Albumin 4.0 Globulin 4.5 Albumin/Globulin Ratio 0.9 Amylase 83 Lipase 120 H Urine Source CLEAN CATCH Urine Color YELLOW Urine Turbidity TURBID Urine pH 6.0 Ur Specific [place] 1.026 Urine Protein 300 A Ur Glucose (Stick) TRACE Ur Ketones (Stick) 40 A Urine Blood NEGATIVE Urine Nitrite NEGATIVE Urine Bilirubin SMALL A Urobilinogen Dipstick 6 A Urine Leukocytes NEGATIVE Urine WBC (Auto) 10-20 A Urine RBC (Auto) 10-20 A U Epithel Cells (Auto) >10 A Urine Bacteria (Auto) 1+ Urine Crystals Not Reportable Small Round Cells Not Reportable Urine Casts Not Reportable Urine Yeast-like Cells Not Reportable Orders Category Date Time Status ED: Urine Bedside ORDERED Care 12/27/16 10:28 Active Saline Loc DIRECTED Care 12/27/16 10:27 Active NPO Diet 12/27/16 10:[address] ABD/PELVIS W/ IV CONT ONLY [CT] Stat Exams 12/27/16 10:27 Completed AMYLASE [CHEM] Stat Lab 12/27/16 10:33 Completed CBC WITH ELECTRONIC DIFF [HEME] Stat Lab 12/27/16 10:33 Completed COMPREHENSIVE METABOLIC PANEL [CHEM] Stat Lab 12/27/16 10:33 Completed LIPASE [CHEM] Stat Lab 12/27/16 10:33 Completed URINALYSIS W/POSS RFLX CULT-1 [URINALYSIS] Stat Lab 12/27/16 11:09 Completed URINE CULTURE [RM] Routine Lab 12/27/16 11:25 Received URINE MANUAL MICROSCOPIC [URINALYSIS] Stat Lab 12/27/16 11:09 Completed 0.9% Sodium Chloride Inj [Ns] 1,000 ml Med 12/27/16 10:27 Discontinued IV 999 mls/hr Ondansetron [Zofran] Med 12/27/16 10:27 Discontinued 4 mg IV NOW ONE Pantoprazole [Protonix] Med 12/27/16 10:27 Discontinued 40 mg IV NOW ONE Sodium Chloride 0.9% Med 12/27/16 10:27 Discontinued 10 ml INJ NOW ONE 1226-Hospitalist will be paged for admission Vital Signs Temp Pulse Resp BP Pulse Ox 12/27/16 11:01 98.2 F 81 16 135/94 100 12/27/16 09:42 98.4 F 94 H 14 139/84 100 Penicillins Allergy (Verified 12/27/16 10:30) Unknown Omeprazole [Prilosec] 20 mg PO BID #28 capsule 08/13/16 Promethazine HCl [Promethazine HCl] 12/27/16 Sucralfate [Carafate] 12/27/16 Dietary Diet NPO Start TueDec 27 1027 Laboratory 12/27/16 12/27/1612/27/17 11:09 10:33 10:33 WBC 3.64 L RBC 5.66 H Hgb 14.6 Hct 44.9 MCV 79.3 L MCH 25.8 L MCHC 32.5 L RDW Std Deviation 15.8 H Plt Count 275 MPV 11.6 H Immature Gran % (Auto) 0.0 Neut % (Auto) 46.2 Lymph % (Auto) 34.6 [place] % (Auto) 15.7 H Eos % (Auto) 2.7 Baso % (Auto) 0.8 Immature Gran # (Auto) 0.00 Neut # (Auto) 1.68 Lymph # (Auto) 1.26 [place] # (Auto) 0.57 Eos # (Auto) 0.10 Baso # (Auto) 0.03 Sodium 143 Potassium 3.4 L Chloride 99 Carbon Dioxide 28 Anion Gap 16 BUN 7 L Creatinine 1.0 H Estimated GFR/1.73 m2 > 60 BUN/Creatinine Ratio 7 Glucose 118 H Calculated Osmolality 284 Calcium 10.0 Total Bilirubin 0.72 AST 47 H ALT 68 H Alkaline Phosphatase 84 Total Protein 8.5 H Albumin 4.0 Globulin 4.5 Albumin/Globulin Ratio 0.9 Amylase 83 Lipase 120 H Urine Source CLEAN CATCH Urine Color YELLOW Urine Turbidity TURBID Urine pH 6.0 Ur Specific [place] 1.026 Urine Protein 300 A Ur Glucose (Stick) TRACE Ur Ketones (Stick) 40 A Urine Blood NEGATIVE Urine Nitrite NEGATIVE Urine Bilirubin SMALL A Urobilinogen Dipstick 6 A Urine Leukocytes NEGATIVE Urine WBC (Auto) 10-20 A Urine RBC (Auto) 10-20 A U Epithel Cells (Auto) >10 A Urine Bacteria (Auto) 1+ Urine Crystals Not Reportable Small Round Cells Not Reportable Urine Casts Not Reportable Urine Yeast-like Cells Not Reportable Orders Category Date Time Status ED: Urine Bedside ORDERED Care 12/27/16 10:28 Active Saline Loc DIRECTED Care 12/27/16 10:27 Active NPO Diet 12/27/16 10:[address] ABD/PELVIS W/ IV CONT ONLY [CT] Stat Exams 12/27/16 10:27 Completed AMYLASE [CHEM] Stat Lab 12/27/16 10:33 Completed CBC WITH ELECTRONIC DIFF [HEME] Stat Lab 12/27/16 10:33 Completed COMPREHENSIVE METABOLIC PANEL [CHEM] Stat Lab 12/27/16 10:33 Completed LIPASE [CHEM] Stat Lab 12/27/16 10:33 Completed URINALYSIS W/POSS RFLX CULT-1 [URINALYSIS] Stat Lab 12/27/16 11:09 Completed URINE CULTURE [RM] Routine Lab 12/27/16 11:25 Received URINE MANUAL MICROSCOPIC [URINALYSIS] Stat Lab 12/27/16 11:09 Completed 0.9% Sodium Chloride Inj [Ns] 1,000 ml Med 12/27/16 10:27 Discontinued IV 999 mls/hr Ondansetron [Zofran] Med 12/27/16 10:27 Discontinued 4 mg IV NOW ONE Pantoprazole [Protonix] Med 12/27/16 10:27 Discontinued 40 mg IV NOW ONE Sodium Chloride 0.9% Med 12/27/16 10:27 Discontinued 10 ml INJ NOW ONE Result Diagrams: 12/27/16 10:33 12/27/16 10:33 - CT/MRI 1 CT Study: Abdomen, Pelvis Impression: Normal CT Results: nad per - CONSULTS/PCP/HOSPITALIST Notification #1 *Consult/PCP/Hospitalist*: Nicole FLROES Time Discussed: 12:31 Consult Disposition: Will see in ED, Admit Departure - Departure Date of Disposition Decision: 12/27/16 Time of Disposition Decision: 12:33 DIAGNOSIS: Dehydration Pancreatitis Qualifiers: Chronicity: acute Pancreatitis type: other Acute pancreatitis complication: unspecified Qualified Code(s): K85.80 - Other acute pancreatitis without necrosis or infection Nausea & vomiting Qualifiers: Vomiting type: bilious vomiting Qualified Code(s): R11.14 - Bilious vomiting Disposition: ADMITTED INPATIENT 09 Certified Medical Emergency: Emergent Condition: Stable Referrals and Follow-Ups: Damon Amin MD [Primary Care Provider] - - Critical Care Note This patient required my direct & personal management of CC.: No This chart was documented by the indicated scribe, (Mian Wick, Jerson) and accurately reflects the services I performed and decisions made by me, Gretchen Gore MD, as attested by the provider's signature.
[2016-12-27] MEDS: LEVAQUIN 500 MG/D5W 500 MG/100 ML IVPB IV SCH (16:29)
[2016-12-27] MEDS: NS 1,000 ML IV SCH (16:29)
--- NOTE | 2016-12-27 17:44 | HISTORY AND PHYSICAL ---
PRIMARY CARE PROVIDER: Dr. Amin. The surgeon who performed her gastric sleeve is Dr. Emilio Dorman located in [facility]. CHIEF COMPLAINT: Nausea, vomiting since gastric sleeve placement with 1 week of black tarry stools. HISTORY OF PRESENT ILLNESS: Ms. Atul Parra is a 31-year-old morbidly obese, female who most recently had a gastric sleeve procedure on December [address] Emilio Dorman out of [place], [place]. She started out at a weight of 386 pounds and is now down to 329 pounds. Her only other past medical history other than morbid obesity is a history of a pulmonary emboli in the past. 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 Now she presents with some nausea and vomiting that has been going on since December 08. She noted for the last week she has had black tarry stools and then yesterday or today. She started having a black-colored emesis but prior to that was clear yellow. Her hemoglobin and hematocrit are stable. She does have some mild pancreatitis with elevated lipase of 120. Her amylase is normal at 83. She states that her urine has been dark and occasionally she gets dizzy at times. Her dietary regimen post surgery for the 1st week was clear, for the 2nd week with full liquids and this week she should be on soft but she has only been able to tolerate clears. We will consult Gastroenterology and check stools for blood. No bright blood noted. She denies any pain or fever. Denies shortness of breath. We will admit to the medical floor with IV fluid hydration and a clear liquid diet. PAST MEDICAL HISTORY: Morbid obesity with a BMI of 54.79. History of pulmonary emboli. PAST SURGICAL HISTORY: Gastric sleeve on 12/08/2016, ovarian polyps removed. SOCIAL HISTORY: She is a former smoker. Social alcohol use. Denies illicit drug use. She is and has 1 adopted daughter. FAMILY HISTORY: Mother and father both had diabetes mellitus type 2, hypertension and glaucoma. She had a brother who had a myocardial infarction in 2012. ALLERGIES: Penicillin. HOME MEDICATIONS: Prilosec 20 mg p.o. twice daily. Carafate 1 g q.i.d. and Phenergan 25 mg p.r.n. for nausea and vomiting. She does not have her vitamin supplements listed. She states that she has been unable to hold them down. REVIEW OF SYSTEMS: Fourteen point review of systems were complete and all were negative except for those mentioned above in the HPI. PHYSICAL EXAMINATION: VITAL SIGNS: Temperature 98.4 degrees, heart rate 86, respiratory rate 18, blood pressure 103/55, O2 saturation 100% on room air. She is 5 feet 5 inches tall, 329 pounds. BMI 54.7. GENERAL: Ms. Atul Parra is a 31-year-old morbidly obese, female who is in no acute distress and is able answer questions appropriately. HEENT: Atraumatic, normocephalic. Pupils equal, round, reactive to light. Extraocular movements intact. Mucous membranes are dry. NECK: Body habitus does not allow for assessment of JVD. She is negative for carotid bruits. CARDIOVASCULAR: S1, S2. Regular rate and rhythm. No rubs, gallops, murmurs. PULMONARY: Clear to auscultation. Bilateral breath sounds. No accessory muscle use or work of breathing noted. GASTROINTESTINAL: Soft, nontender, obese and hypoactive bowel sounds x4. SKIN: Warm, dry, intact. Percutaneous puncture sites are healed. Right lower quadrant abdominal old SANYA drain site with dressing and mild oozing from it. No SANYA drain at this time. NEUROLOGIC: A and O x4. Moves all extremities equally. LABORATORY DATA: White blood cells 3000. Hemoglobin 14, hematocrit 44, platelet count 275,000. Sodium 143, potassium 3.4, BUN 7, creatinine is 1.0, glucose 118, calcium 10, total bilirubin 0.72, AST 47, ALT 68. Total protein is 8.5, albumin 4.0 amylase 83, lipase 120. Urinalysis: 300 protein, 40 ketones, small bilirubin, 10-20 white blood cells, 10-20 red blood cells, 1+ bacteria. IMAGING: Abdominopelvic CT: No acute disease or complication. Findings compatible with gastric sleeve procedure. No obstruction or inflammation. No free fluid. No free air. Normal appendix. Moderate degenerative changes of the spine. ASSESSMENT AND PLAN: 1. Intractable nausea, vomiting, secondary to gastric sleeve procedure. Antiemetics p.r.n. No obvious acute findings on the abdominopelvic CT. We will do IV fluid hydration. 2. Mild acute pancreatitis. We will recheck amylase and lipase in the morning. We will do only clear liquid diet and aggressive IV fluid hydration. We will consult. 3. Complaints of black tarry stools with black emesis. Hemoglobin and hematocrit stable. We will go ahead and consult Gastroenterology given that she has had a recent gastric sleeve procedure. 4. Possible urinary tract infection. Urine is dark but denies any dysuria or foul smell. We will start her on Levaquin. 5. Deep venous thrombosis prophylaxis. SCDs. Dictated by SANDRA Live for Alejandro Raya MD cc: SANDRA Live MD Hiteshri S. Bhavsar, MD
[2016-12-28] MEDS: NS 1,000 ML IV SCH ×3 (04:49→23:14)
[2016-12-28 06:29] LABS: BASO% 0.6 % (0.0-0.8); EOS# 0.19 X1000 (0.0-0.7); EOS% 5.7 % (0.0-10.0); HEMATOCRIT 38.3 % (37.0-47.0); HEMOGLOBIN 12.3 g/dL (12.0-16.0); LYMPH# 1.96 X1000 (1.2-3.4); LYMPH% 58.5 % (20.5-51.1); MANUAL DIFF NEEDED? YES; MCH 25.9 PG (27-31); MCHC 32.1 g/dL (33-37); MCV 80.6 FL (81-99); MONO# 0.64 X1000 (0.11-0.59); MONO% 19.1 % (1.7-9.3); NEUT% 16.1 % (42.2-75.2); PLT 201 X1000 (130-400); RBC 4.75 XMIL (4.2-5.4)
[2016-12-28 06:35] LABS: INR 1.12; PROTIME 11.9 Seconds (9.2-11.7); PTT 25.8 Seconds (22.0-36.0)
[2016-12-28 06:40] LABS: AGAP 13; ALBUMIN 3.4 g/dL (3.5-5.0); ALKALINE PHOSPHATASE 65 U/L (32-104); AMYLASE 69 U/L (20-200); BUN 5 mg/dL (8-22); CALCIUM 8.4 mg/dL (8.8-10.2); CHLORIDE 104 mmol/L (98-107); COSMO 284; GOT 33 U/L (10-30); GPT 48 U/L (10-36); LIPASE 104 U/L (13-60); MAGNESIUM 1.4 mg/dL (1.5-2.7); POTASSIUM 3.2 mmol/L (3.5-5.1); SODIUM 144 mmol/L (136-145); TCO2 27 mmol/L (25-35); TOTAL BILIRUBIN 0.73 mg/dL (0.20-1.00)
[2016-12-28 07:32] LABS: EOS 6 % (1-10); LYMPHS 64 % (21-51); MONO 4 % (1-9)
[2016-12-28] MEDS: PRILOSEC PO SCH (10:32)
--- NOTE | 2016-12-28 14:43 | PROGRESS NOTE ---
DATE: 12/28/2016 SUBJECTIVE: Patient reports not having black tarry stools anymore. She denies any dizziness or lightheadedness. She is not vomiting anymore. OBJECTIVE: Vital Signs: Temperature 98.4 degrees, heart rate 80, respiratory rate 18, blood pressure 111/63, O2 saturation 100% on room air. General examination: This is a morbidly obese, 31-year-old female lying in bed, in no acute distress. HEENT: Head is normocephalic and atraumatic. Anicteric sclerae and pale conjunctivae. Mucous membranes moist. Neck: Supple. No JVD noted. No carotid bruits. No lymphadenopathy. Cardiovascular: S1, S2 heard. No murmurs, gallops, or rubs. Regular rate and rhythm. Respiratory: Clear bilaterally to auscultation. No work of breathing or using accessory muscles. Abdomen: Soft, nontender to palpation. Bowel sounds present. No organomegaly. Extremities: No clubbing, cyanosis, or edema. Peripheral pulses present in both legs. Neurological: The patient is alert and oriented x3. Moves 4 extremities. LABORATORY DATA: White cell count 3.35, hemoglobin 10.3, hematocrit 38.3, platelets 201,000, with BMP that is remarkable for potassium 3.2. ASSESSMENT AND PLAN: 1. Suspected gastrointestinal bleeding. The patient reports that she was having intractable nausea and vomiting, and sometimes she noticed some blood on it and also black stools. Hemoglobin is stable so far but we have consulted Gastroenterology to see if this patient needs to have endoscopy to check this recently done gastric sleeve. We will see what they have to say. 2. Urinary tract infection. The patient was complaining of urinary tract infection symptoms like burning on urination, and the urine culture shows gram-negative rods and gram-positive cocci. So at this time we prefer to start this patient on antibiotics, in this case, ceftriaxone. We will go from there. 3. Mild acute pancreatitis. I do not think this patient clinically has pancreatitis because the abdominal exam is very benign and the lipase has dropped to 104, with normal amylase. At this point, we are going to continue checking this patient daily. cc: Ramirez Blank MD
[2016-12-28] MEDS: LEVAQUIN 500 MG/D5W 500 MG/100 ML IVPB IV SCH (17:11)
[2016-12-29] MEDS: ZOFRAN IV PRN ×2 (06:45→22:10)
[2016-12-29] MEDS: NS 1,000 ML IV SCH ×4 (07:42→22:10)
[2016-12-29] MEDS: PRILOSEC PO SCH (08:01)
[2016-12-29 09:03] LABS: MANUAL DIFF NEEDED? NO
[2016-12-29 09:13] LABS: BASO% 0.6 % (0.0-0.8); EOS# 0.18 X1000 (0.0-0.7); EOS% 5.7 % (0.0-10.0); HEMATOCRIT 37.1 % (37.0-47.0); LYMPH# 1.68 X1000 (1.2-3.4); MCH 26.2 PG (27-31); MCHC 32.3 g/dL (33-37); MONO# 0.43 X1000 (0.11-0.59); MONO% 13.6 % (1.7-9.3); MPV 11.7 FL (7.4-10.4); NEUT% 27.1 % (42.2-75.2); PLT 179 X1000 (130-400); RBC 4.58 XMIL (4.2-5.4)
--- NOTE | 2016-12-29 09:28 | PROGRESS NOTE ---
DATE: 12/29/2016 SUBJECTIVE: Patient reports she is still having some black tarry stools. She is not vomiting anymore. She denies any dizziness or lightheadedness. OBJECTIVE: Vital Signs: Temperature 97.9 degrees, heart rate 85, respiratory rate 20, blood pressure 106/55, O2 saturation 100% on room air. General examination: This is a morbidly obese, 31-year-old, female lying in bed in no acute distress. HEENT: Head is normocephalic, atraumatic. Anicteric sclerae and pale conjunctivae. Mucous membranes moist. Neck: Supple. No JVD noted. No carotid bruits. No lymphadenopathy. Cardiovascular exam: S1, S2 heard. No murmurs, gallops, or rubs. Regular rate and rhythm. Respiratory exam: Clear bilaterally to auscultation. No work of breathing or using accessory muscles. Abdomen: Soft, obese, nontender to palpation. Bowel sounds present. No organomegaly. Extremities: No clubbing, cyanosis, or edema. Peripheral pulses present in both legs. Neurological exam: Patient alert and oriented x3. Moves all 4 extremities. LABORATORY DATA: Pending. ASSESSMENT AND PLAN: 1. Suspected gastrointestinal bleeding. The patient reports feeling better for nausea. She is not vomiting anymore. She reports still having some black tarry stools. We have consulted gastroenterology, but apparently this consultation is still pending. There is no note in the computer or note reading in the chart; there are no new orders in the computer as well. We will wait to see if they are planning to do any endoscopy or colonoscopy or not. 2. Urinary tract infection. The patient is complaining of pain upon urination. The urine culture showed strep agalactiae greater than 100,000 colonies and also Escherichia coli almost hassan sensitive. At this time, what we are going to use is levofloxacin which will cover both bacteria and we will go from there. 3. Mild acute pancreatitis. I do not think the patient has acute bronchitis, and physical exam today is pretty benign. Further recommendations to follow according to the clinical situation with the patient. We will see what specialist involved in his care has to say today. cc: MD SANDY Tyler
[2016-12-29 09:33] LABS: AGAP 11; BUN 4 mg/dL (8-22); CALCIUM 8.5 mg/dL (8.8-10.2); CHLORIDE 104 mmol/L (98-107); COSMO 279; SODIUM 142 mmol/L (136-145); TCO2 27 mmol/L (25-35)
[2016-12-29] MEDS: PROTONIX IV SCH ×2 (10:35→22:10)
--- NOTE | 2016-12-29 15:56 | Diag Imaging Result Doc PS360 ---
EXAM: US ABDOMEN-COMPLETE HISTORY: elevated liver enzymes TECHNIQUE: COMPARISON: None. FINDINGS: Normal pancreatic body. The majority of the pancreatic head and tail are obscured. The aorta and inferior vena cava are also obscured. There is fatty infiltration of the liver. It is difficult to penetrate liver. Normal right kidney. No hydronephrosis. The gallbladder and common bile duct are obscured. Spleen is not enlarged. No ascites. Normal left kidney. No hydronephrosis. IMPRESSION: Difficult exam with multiple organs obscured. There is fatty infiltration of the liver. Electronically signed by Sony Freeman 12/29/2016 3:53 PM
[2016-12-29] MEDS: LEVAQUIN 500 MG/D5W 500 MG/100 ML IVPB IV SCH (16:39)
[2016-12-29] MEDS: CARAFATE LIQUID PO SCH (22:10)
[2016-12-30] MEDS: CARAFATE LIQUID PO SCH ×3 (04:56→14:55)
[2016-12-30 05:59] LABS: MANUAL DIFF NEEDED? NO
[2016-12-30] MEDS ORDERED: SODIUM CHLORIDE 0.9% 10 ML ONE (06:27)
[2016-12-30 06:29] LABS: BASO% 0.7 % (0.0-0.8); EOS# 0.16 X1000 (0.0-0.7); EOS% 5.5 % (0.0-10.0); HEMATOCRIT 37.9 % (37.0-47.0); HEMOGLOBIN 12.1 g/dL (12.0-16.0); LYMPH# 1.66 X1000 (1.2-3.4); LYMPH% 57.2 % (20.5-51.1); MCH 26.5 PG (27-31); MCHC 31.9 g/dL (33-37); MCV 82.9 FL (81-99); MONO# 0.37 X1000 (0.11-0.59); MONO% 12.8 % (1.7-9.3); MPV 11.9 FL (7.4-10.4); NEUT% 23.8 % (42.2-75.2); PLT 158 X1000 (130-400); RBC 4.57 XMIL (4.2-5.4)
[2016-12-30 06:32] LABS: AGAP 13; BUN 3 mg/dL (8-22); CALCIUM 8.3 mg/dL (8.8-10.2); CHLORIDE 107 mmol/L (98-107); COSMO 283; POTASSIUM 3.3 mmol/L (3.5-5.1); SODIUM 144 mmol/L (136-145); TCO2 24 mmol/L (25-35)
[2016-12-30] MEDS ORDERED: XYLOCAINE-MPF 2% ONE (07:13)
[2016-12-30] MEDS ORDERED: DIPRIVAN 1% 0 MG/0 ML BOTTLE ONE (07:17)
--- NOTE | 2016-12-30 08:09 | PROGRESS NOTE ---
DATE: 12/29/2016 SUBJECTIVE: The patient is currently resting in bed. She complains of nausea. Denies any vomiting today, but she has intermittent constipation. She denies any vomiting blood or passing blood in the stools. She had a recent gastric sleeve surgery done on 2016 at [facility] in [place]. She has seen the surgeon on the day after the surgery. Since then, has not seen the surgeon. Her surgeon is Dr. Dorman. Since being in the hospital , she has been on IV fluids and IV PPIs with fair response. She denies any fevers, rigors, or chills. OBJECTIVE: Vital signs: Temperature 98.2, pulse rate of 76, respiratory rate 18, blood pressure 100/52, saturating 100% on room air. Body weight of 349 pounds 1.2 ounces, BMI of 58 kg/m2. General: Patient is morbidly obese, lying in bed, in no acute distress. HEENT : No pallor. No icterus. Pupils equal, react to light. Neck: Supple. Abdomen: Morbidly obese. Soft, mild discomfort. No rebound or guarding. Bowel sounds heard. Extremities: No cyanosis, clubbing, edema. Neurologic: She is alert, awake, oriented. LABORATORY AND IMAGING: Hemoglobin and hematocrit is 12 and 37.1, white blood 3.17, platelet count of 179,000, MCV of 81. Sodium 130, potassium 3, chloride 104, bicarb 27, anion gap 11, BUN of 4, creatinine 0.7, glucose of 87, calcium 8.5, liver enzymes of AST 33, ALT 48, alkaline phosphatase 60, albumin 3.4, lipase of 104, amylase 59. TSH 1.47. Her urinalysis also showed positive protein, 10 to 20 white cells, 10 to 20 red cells. Urine culture showed strep agalactiae, group B and E. coli sensitive to Levaquin. Stool for occult blood is positive. Patient had CT scan of the abdomen and pelvis done on 12/27/2016 which showed no acute disease or complications. Findings compatible with gastric sleeve procedure. No bowel obstruction or inflammation. No free air or free fluid. Normal appendix. Moderate degeneration of the spine. Ultrasound of the abdomen done today showed fatty infiltration of liver. The gallbladder and bile duct are obscured. The head of the pancreas is obscured. No ascites. Normal left kidney. No hydronephrosis. IMPRESSION AND PLAN: 1. Abdominal pain, nausea, vomiting, status post gastric sleeve procedure on 04/2017 at [facility] in [place] by Dr. Dorman. In this regard, we will keep her on supportive treatment with IV fluids, IV normal saline 100 mL/hour. We will give her IV antiemetics with IV Zofran 4 mg IV every 4 hours. 2. We will keep her on Protonix 40 mg IV b.i.d. 3. We will keep her on Carafate 1 g 6 hours. 4. The patient will be continued on Levaquin for urinary tract infection with E. coli and strep agalactiae group B. 5. We will check acute hepatitis panel, as the patient has elevated liver enzymes. 6. We will schedule patient for EGD tomorrow under anesthesia. The patient will think about the possible EGD tomorrow if she is still symptomatic throughout the night. The risks, benefits, indications and alternatives discussed with the patient. cc: MD Damon Tyler MD Manish Arora, MD Lee A. Schmitt, MD MTDD
[2016-12-30] MEDS ORDERED: DULCOLAX PR ONE (09:15)
[2016-12-30] MEDS: NS 1,000 ML IV SCH (09:47)
--- NOTE | 2016-12-30 10:58 | PROGRESS NOTE ---
DATE: 12/30/2016 SUBJECTIVE: Patient reports not having any more tarry stools for the last couple of days. She is not vomiting anymore. She was trying a clear liquid diet yesterday and she was doing fine. OBJECTIVE: Vital Signs: Temperature 97.7 degrees, heart rate 72, respiratory rate 18, blood pressure 124/66, O2 saturation 100% on room air. General Examination: This is a morbidly obese, 31-year-old, female lying in bed, in no acute distress. HEENT: Head is normocephalic and atraumatic. Anicteric sclerae. [place] conjunctivae. Mucous membranes moist. Neck: Supple. No JVD noted. No carotid bruits. No lymphadenopathy. No thyromegaly. Cardiovascular Examination: S1 and S2 heard. No murmurs, gallops, or rubs. Regular rate and rhythm. Respiratory Examination: Clear bilaterally to auscultation. No work of breathing or using accessory muscles. Abdomen: Soft, obese, nontender to palpation. A little bit distended. Bowel sounds present. No organomegaly. Extremities: No clubbing, cyanosis, or edema. Peripheral pulses present in both legs. Neurological Examination: Patient is alert and oriented x3. Moves 4 extremities. Laboratory Data: White cell count 2.9, hemoglobin 12.1, hematocrit 37.9, with platelets 158,000. The BMP is unremarkable except potassium 3.3. ASSESSMENT AND PLAN: 1. Suspected gastrointestinal bleeding. The patient reported no more episodes of black tarry stools for the last 2 days and not vomiting anything since yesterday. Dr. Isabel, who is on board, has been able to contact Dr. Kunz, primary surgeon, who performed the gastric bypass. He recommends to do a Gastrografin swallowing study to see if there is any gastric leak versus obstruction. We are going to do that exam today considering that this patient is nothing per oral. If the examination is negative, he recommends to place this patient on Decadron and also Emend which is an antiemetic. If the examination is positive for leaking, definitely she will need to be transferred to [facility] in [place]. We will follow the results of that exam. 2. Urinary tract infection. The patient is on levofloxacin for Escherichia coli and also Streptococcus agalactiae urinary tract infection. 3. Mild acute pancreatitis. The patient is stable. Not complaining of any abdominal pain and the physical examination is benign. Overall, this patient is stable. Hemoglobin is stable so will see what that exam shows. We will make further plans depending upon those results. cc: Ramirez Blank MD
[2016-12-30 10:59] LABS: HEPATITIS PROFILE ACUTE SEE COMMENTS
[2016-12-30] MEDS: ZOFRAN IV PRN ×2 (11:07→15:52)
[2016-12-30] MEDS: PROTONIX IV SCH (11:07)
--- NOTE | 2016-12-30 12:10 | Diag Imaging Result Doc PS360 ---
EXAM: GI SERIES WITH WATER-SOLUBLE CONTRAST SWALLOW INDICATION: rule out gastric sleeve leak vs obstruction TECHNIQUE: Diluted Omnipaque contrast was administered orally under fluoroscopy. Spot images were obtained. COMPARISON: None. FINDINGS: There are multiple metallic lucy along the stomach from a very recent gastric sleeve surgery. Contrast filled the gastric remnant normally. There is no abnormal contrast extravasation to indicate leak. Contrast was seen flowing into the small bowel. There was no evidence of obstruction. IMPRESSION: No evidence of abnormal contrast extravasation from the surgical site and no evidence of obstruction. Electronically signed by Dc Sparrow 12/30/2016 12:07 PM
[2016-12-30] MEDS: POTASSIUM CHLORIDE 20 MEQ/SWI 20 MEQ/100 ML IVPB IV SCH ×2 (12:42→14:54)
--- NOTE | 2016-12-30 13:01 | PROGRESS NOTE ---
DATE: 12/30/2016 ATTENDING PHYSICIAN: Dr. Kothari. PRIMARY CARE PHYSICIAN: Dr. Amin. PRIMARY SURGEON: Gastric bypass surgeon, Dr. Kunz at [facility]. SUBJECTIVE: Patient is currently resting in bed. Her nausea has improved a little bit. She denies any vomiting. She had not eaten anything this morning. I have spoken with Dr. Barker, her gastric bypass surgeon at [facility] in [place] this morning. We discussed the situation with him. He suggested performing a Gastrografin swallow study to evaluate for any kind of leak or obstruction. He also suggested the patient to try on Decadron Emend if her gastric leak and obstruction ruled out. If the patient does have any kind of leak or obstruction, the patient may need to be transferred to [facility] for further management. In the interim the patient denies any fevers, rigors, chills. She does have constipation and had not had a good bowel movement for many days but that is chronic for her. PHYSICAL EXAMINATION: Temperature 97.7 degrees, pulse rate of 74, respiratory rate 18, blood pressure 124/60, saturating 100% on room air. Body weight of 349 pounds 11.2 pounds. General Appearance: Obese, lying in bed, in no acute distress. HEENT: No pallor. No icterus. Neck: Supple. Abdomen: Is obese. Mild discomfort in the epigastrium. No rebound. No guarding. Bowel sounds are present. Extremities: No cyanosis, clubbing, and edema. Neurologic: She is alert, awake, oriented. LABS: Hemoglobin and hematocrit is 12.1 and 37.9, white count of 2.9, platelet count of 158,000. MCV of 82.9. Sodium 141, potassium 3.3, chloride 107, bicarb 24, anion gap 13, BUN of 3, creatinine 0.6, glucose of 85. Calcium is 8.3. Amylase of 69, lipase of 104. Hepatitis panel is nonreactive. CT of the abdomen and pelvis no acute disease or complication. The liver, gallbladder, spleen, pancreas, adrenal and kidneys are normal. Ultrasound was not of much help because of body habitus. IMPRESSION AND PLAN: 1. Suspected GI bleeding and intractable nausea, status post gastric sleeve surgery. In this regard, since I have spoken to Dr. Arnold at [facility] we will perform Gastrografin swallow study to evaluate for any leak or obstruction. Based on that further plan will be made and we will keep her on IV fluids, IV antiemetics. 2. She has a UTI. She will continue on Levaquin for now. 3. Mildly elevated lipase. It could be related to recent surgery but the pancreas looked normal on the CAT scan. 4. We will hold off on doing any kind of endoscopic intervention at this time. Further recommendations to follow pending the above. cc: Jeancarlos Isabel MD MTDD
[2016-12-30 13:46] VITALS: BP 122/70
[2016-12-30] MEDS ORDERED: POTASSIUM CHLORIDE 20% LIQUID PO ONE (15:13)
[2016-12-30] MEDS ORDERED: DECADRON IV ONE (15:15)
--- NOTE | 2016-12-30 17:59 | DISCHARGE SUMMARY ---
ADMISSION DATE: 12/27/2016 DISCHARGE DATE: 12/30/2016 CONSULTATIONS: None. PERTINENT PROCEDURES: 1. Abdomen and pelvis CT showed no acute disease or complication. 2. Abdominal ultrasound. It was difficult to examine with multiple organs obscured. There is fatty infiltration of the liver. 3. Upper GI/barium swallow showed no evidence of abnormal contrast extravasation from the surgical site and no evidence of obstruction. DISCHARGE DIAGNOSES: 1. Suspected GI bleed with intractable nausea status post gastric sleeve surgery. Dr. Isabel has spoken with Dr. Dorman at [facility] in [place] who did perform. They did perform an Gastrografin swallow to evaluate for any leak or obstruction. None was identified. She is discharged home today to follow up with Dr. Dorman at [facility]. 2. Urinary tract infection. Patient will continue on p.o. antibiotics. Mildly elevated lipase could be secondary to recent surgery. Pancreas normal on CT. HOSPITAL COURSE: Ms. Parra is a 31-year-old, morbidly obese, female, who recently had a gastric sleeve procedure on December [address] Emilio Dorman out of [place] at [facility]. She started out at 386 pounds and is now down to 329 pounds. Her only other past medical history other than morbid obesity was pulmonary emboli in the past. 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 She presented to the ED with nausea and vomiting that had been ongoing since December 08. She noted for the last week to have black tarry stools and then the day before or the day of her admission she started having black-colored emesis, but prior to that it was clear yellow. Her hemoglobin and hematocrit was stable. She had some mild pancreatitis with an elevated lipase of 120. Her amylase was normal at 83. She states her urine had been dark and she occasionally gets dizzy. Her dietary regimen post the first week of surgery. The second 2nd week was full liquids. For this week she should be on a soft diet but she has only been able to tolerate clears. GI was consulted. Occult stools were positive. She did have an E. coli UTI. She was given antiemetics p.r.n. and started on IV fluids. We did obtain an abdominal and pelvis CT. She was on Protonix on IV antibiotics for her UTI and Carafate. Dr. Isabel spoke with her surgeon at [facility]. He recommended a Gastrografin swallow study to evaluate for any leak or obstruction. There was no evidence of any abnormal contrast extravasation from the surgical site. No evidence of obstruction. She has had no more episodes of black tarry stools. No vomiting. Since the recommended study was negative, the doctor from [facility] recommended to place the patient on Decadron and Emend which is an antiemetic. She continued to tolerate a clear liquid diet. She is being discharged today by Dr. Kothari. VITAL SIGNS AT TIME OF DISCHARGE: Temperature is 98.3 degrees, heart rate 83, respirations 20, blood pressure 122/70, O2 is 100% on room air. DISCHARGE DIET: Clear liquids. DISCHARGE MEDICATIONS: 1. Emend 40 mg p.o. daily p.r.n. 2. Calcium 500 mg chewable tablet 1 each p.o. daily. 3. B12 injections 1000 mg injected as directed. 4. [place] 7.5/325 p.o. q.6 hours p.r.n. pain. 5. Prilosec 20 mg p.o. b.i.d. 6. Carafate 1 g p.o. daily. FOLLOWUP: Ms. Parra is being discharged home with self-care. She is to follow up with her primary surgeon, Dr. Dorman at [facility] as instructed. Take all medications as prescribed. Continue to follow her previous postoperative instructions. She can return to the ED for any worsening of symptoms. Dictated by SANDRA Sheriff for Ramirez Blank MD cc: MD Damon Tyler MD
== END 2016-12-30 17:14 | disposition home or self-care (01) ==
LOC: ED 09:37 → 4N 09:38 → SUATTDRO 09:38
PROVIDERS: ATTEND Internal Medicine

== ENCOUNTER 2017-01-15 17:55 | Inpatient (IN) ==
[2017-01-15 18:44] LABS: MANUAL DIFF NEEDED? NO
[2017-01-15 18:49] LABS: BASO% 0.4 % (0.0-0.8); EOS# 0.07 X1000 (0.0-0.7); EOS% 1.5 % (0.0-10.0); HEMATOCRIT 44.6 % (37.0-47.0); HEMOGLOBIN 14.5 g/dL (12.0-16.0); MCHC 32.5 g/dL (33-37); MCV 79.9 FL (81-99); MONO# 0.61 X1000 (0.11-0.59); MONO% 13.2 % (1.7-9.3); MPV 11.5 FL (7.4-10.4); NEUT% 43.9 % (42.2-75.2); PLT 263 X1000 (130-400); RBC 5.58 XMIL (4.2-5.4)
[2017-01-15 19:10] LABS: AGAP 20; ALBUMIN 4.1 g/dL (3.5-5.0); ALKALINE PHOSPHATASE 71 U/L (32-104); AMYLASE 48 U/L (20-200); BUN 7 mg/dL (8-22); CALCIUM 9.7 mg/dL (8.8-10.2); CHLORIDE 104 mmol/L (98-107); COSMO 289; GOT 19 U/L (10-30); GPT 32 U/L (10-36); LIPASE 53 U/L (13-60); POTASSIUM 3.3 mmol/L (3.5-5.1); SODIUM 147 mmol/L (136-145); TCO2 23 mmol/L (25-35); TOTAL BILIRUBIN 0.64 mg/dL (0.20-1.00); TOTAL PROTEIN 8.1 g/dL (6.3-8.3)
[2017-01-15 19:58] LABS: URINE CULTURE NEEDED? NO; URINE MICRO REVIEW NEEDED? NO; URINE SOURCE CATH
[2017-01-15 20:02] LABS: BILIRUBIN URINE MODERATE (NEGATIVE); BLOOD URINE MODERATE (NEGATIVE); COLOR YELLOW; GLUCOSE URINE NEGATIVE (NEGATIVE); LEUKOCYTES URINE NEGATIVE (NEGATIVE); NITRITE URINE NEGATIVE (NEGATIVE); PH URINE 6.5; PROTEIN URINE 100 mg/dL (NEGATIVE); SP GRAVITY URINE 1.033; TURBIDITY URINE TURBID (CLEAR); UROBILINOGEN URINE 6 mg/dL (NORMAL)
[2017-01-15 20:03] LABS: UR EPITHELIAL CELLS <10 /HPF (<10); URINE BACTERIA NEGATIVE /HPF; URINE RBC TNTC /HPF (<10); URINE WBC <10 /HPF (<10)
[2017-01-15] MEDS ORDERED: ZOFRAN IV ONE (20:21)
[2017-01-15] MEDS ORDERED: BENADRYL IV ONE (20:21)
[2017-01-15] MEDS ORDERED: MORPHINE IV ONE (20:21)
[2017-01-15] MEDS ORDERED: NS 1,000 ML IV ONE (20:21)
[2017-01-15] MEDS ORDERED: REGLAN IV ONE (20:21)
--- NOTE | 2017-01-15 20:31 | PROVIDER DOCUMENTATION ---
HPI-Abdominal Pain/GI Problem - General Chief Complaint: Nausea/Vomiting Stated Complaint: abd pain, nausea Time Seen by Provider: 01/15/17 20:10 Source: patient, old records Allergies/Adverse Reactions: Patient Allergies Allergy/AdvReac Type Severity Reaction Status Date / Time Penicillins Allergy Unknown Verified 01/15/17 18:33 Home Medications: Home Medication List Medication Instructions Recorded Confirmed Last Taken Type Cyanocobalamin (Vitamin B-12) 1,000 mcg IJ DIRECTED 12/27/16 01/15/17 1 Day Ago History [Cyanocobalamin Injection] Ondansetron [Zofran Odt] 4 mg PO Q8H PRN 01/15/17 01/15/17 01/15/17 History - History of Present Illness-ABD Nature of Presenting Problems: This pt, who had a gastric sleeve procedure in November, presents today c complaints of intractable n/v. She was admitted 3 weeks ago to his hospital for similar problems. At d/c she felt somewhat better but her symptoms never fully improved. She called her surgeon and was advised to attempt a clear liquid diet but she is unable to hold down any fluids without vomiting. No other issues or complaints. Abdominal Pain Onset Location: reports: generalized abdomen Quality of Pain: reports: aching, cramping Severity in ED: reports: moderate Onset/Duration: reports: other (see hpi) Timing: reports: still present, getting worse Associated Symptoms: reports: nausea, vomiting Last BM: unsure Dark Stools Present?: reports: none noticed Rectal Bleeding: reports: none Rectal Pain: reports: none Emesis Description: reports: clear Bruising or Bleeding Gums?: No Similar Symptoms Previously?: Yes Recently seen or treated by another doctor?: Yes Review of Systems - Adult - REVIEW OF SYSTEMS - ADULT Constitutional: reports: santiago. denies: chills, fever Eyes: reports: no symptoms reported. denies: discharge, dry eyes Ears, Nose, Mouth & Throat: reports: no symptoms reported. denies: ear discharge, ear pain Cardiovascular: reports: no symptoms reported. denies: chest pain, edema Respiratory: reports: no symptoms reported. denies: chronic cough, cough Gastrointestinal: reports: abdominal pain, nausea, vomiting. denies: diarrhea, difficulty swallowing, rectal bleeding Genitourinary: reports: no symptoms reported. denies: dysuria, discharge Musculoskeletal: reports: no symptoms reported. denies: bone pain, back pain Integumentary: reports: no symptoms reported. denies: hives, hair loss Neurological: reports: no symptoms reported. denies: ataxia, dizziness/vertigo Psychiatric: reports: no symptoms reported. denies: anxiety, anti-depressant use Endocrine: reports: no symptoms reported Hematologic/Lymphatic: reports: no symptoms reported Allergic/Immunologic: reports: no symptoms reported All Other Systems: Reviewed and Negative Past History - Adult - PAST MEDICAL HISTORY-ADULT Review of Records: reports: Old Records Reviewed, Nursing Assessment Review, Medications Reviewed, Social history reviewed & non-contributory. Major Childhood Illnesses: reports: denies history Cardiovascular: reports: blood clots (PE) Respiratory: reports: other (Pulmonary Embolus) Gastrointestinal: reports: denies history Obstetrical/Gynecological: reports: denies history Genitourinary: reports: denies history Musculoskeletal: reports: denies history Neurological: reports: denies history Endocrine/Immune: reports: anemia (on iron tablets) Other Conditions: reports: denies history - PRIOR SURGERIES/PROCEDURES Surgical/Procedure History: reports: recent surgery (gastric sleeve on 12/08/16) , other (d&c, bladder surgery,) - IMMUNIZATION STATUS Childhood Immunizations: See Nurse Assessment Flu Vaccine: See Nurse Assessment - FAMILY HISTORY Family History: reviewed, not pertinent Physical Exam-General - PHYSICAL EXAM-ADULT Initial Vital Signs Reviewed: Yes - CONSTITUTIONAL General Appearance: appears well, alert, no apparent distress - EYES Eyes: PERRL/EOMI, pink conjunctivae - HEAD, EARS, NOSE, MOUTH & THROAT HENMT: normocephalic/atraumatic, moist mucous membranes, normal ENT inspection - NECK Neck: supple, normal inspection - RESPIRATORY Respiratory: chest non-tender, lungs clear, normal breath sounds - CARDIOVASCULAR Cardiovascular: normal peripheral pulses, regular rate, rhythm - GASTROINTESTINAL (ABDOMEN) Abdominal Exam: normal bowel sounds, soft, tenderness - LYMPHATIC Lymphatic: no adenopathy - MUSCULOSKELETAL Back Exam: normal inspection, no CVA tenderness, no vertebral tenderness Extremity: normal range of motion, non-tender - SKIN Integumentary: normal color, normal turgor, warm/dry - NEUROLOGIC Neurologic: grossly normal, no motor/sensory deficits - PSYCHIATRIC Psych/Mental Status: normal mood/affect, normal thought content, normal thought process, oriented x 3 Progress - PLAN OF CARE/RESULTS Progress/Plan/Lab Results: Vital Signs - 8 hr 01/15/17 18:17 Temperature 98.8 F Pulse Rate 82 Respiratory Rate 17 Blood Pressure 129/80 O2 Sat by Pulse Oximetry 100 Laboratory Results - last 24 hr 01/15/17 01/15/17 01/15/17 18:25 18:25 18:25 WBC 4.63 L RBC 5.58 H Hgb 14.5 Hct 44.6 MCV 79.9 L MCH 26.0 L MCHC 32.5 L RDW Std Deviation 17.3 H Plt Count 263 MPV 11.5 H Immature Gran % (Auto) 0.0 Neut % (Auto) 43.9 Lymph % (Auto) 41.0 [place] % (Auto) 13.2 H Eos % (Auto) 1.5 Baso % (Auto) 0.4 Immature Gran # (Auto) 0.00 Neut # (Auto) 2.03 Lymph # (Auto) 1.90 [place] # (Auto) 0.61 H Eos # (Auto) 0.07 Baso # (Auto) 0.02 Sodium 147 H Potassium 3.3 L Chloride 104 Carbon Dioxide 23 L Anion Gap 20 BUN 7 L Creatinine 0.7 Estimated GFR/1.73 m2 > 60 BUN/Creatinine Ratio 10 Glucose 81 Calculated Osmolality 289 Calcium 9.7 Total Bilirubin 0.64 AST 19 ALT 32 Alkaline Phosphatase 71 Total Protein 8.1 Albumin 4.1 Globulin 4.0 Albumin/Globulin Ratio 1.0 Amylase 48 Lipase 53 Plasma Lactate 1.3 Urine Source Urine Color Urine Turbidity Urine pH Ur Specific [place] Urine Protein Ur Glucose (Stick) Ur Ketones (Stick) Urine Blood Urine Nitrite Urine Bilirubin Urobilinogen Dipstick Urine Leukocytes Urine WBC (Auto) Urine RBC (Auto) U Epithel Cells (Auto) Urine Bacteria (Auto) 01/15/17 19:30 WBC RBC Hgb Hct MCV MCH MCHC RDW Std Deviation Plt Count MPV Immature Gran % (Auto) Neut % (Auto) Lymph % (Auto) [place] % (Auto) Eos % (Auto) Baso % (Auto) Immature Gran # (Auto) Neut # (Auto) Lymph # (Auto) [place] # (Auto) Eos # (Auto) Baso # (Auto) Sodium Potassium Chloride Carbon Dioxide Anion Gap BUN Creatinine Estimated GFR/1.73 m2 BUN/Creatinine Ratio Glucose Calculated Osmolality Calcium Total Bilirubin AST ALT Alkaline Phosphatase Total Protein Albumin Globulin Albumin/Globulin Ratio Amylase Lipase Plasma Lactate Urine Source CATH Urine Color YELLOW Urine Turbidity TURBID Urine pH 6.5 Ur Specific [place] 1.033 Urine Protein 100 A Ur Glucose (Stick) NEGATIVE Ur Ketones (Stick) >150 Urine Blood MODERATE A Urine Nitrite NEGATIVE Urine Bilirubin MODERATE A Urobilinogen Dipstick 6 A Urine Leukocytes NEGATIVE Urine WBC (Auto) <10 Urine RBC (Auto) TNTC A U Epithel Cells (Auto) <10 Urine Bacteria (Auto) NEGATIVE Orders Category Date Time Status Saline Loc DIRECTED Care 01/15/17 18:29 Active NPO Diet 01/15/17 18:29 Active flat [FLAT/UPRIGHT ABD/1 VIEW CHEST] [RAD] Stat Exams 01/15/17 20:21 Ordered AMYLASE [CHEM] Stat Lab 01/15/17 18:25 Completed BLOOD CULTURE [BLDCUL] Stat Lab 01/15/17 18:25 Ordered CBC WITH ELECTRONIC DIFF [HEME] Stat Lab 01/15/17 18:25 Completed COMPREHENSIVE METABOLIC PANEL [CHEM] Stat Lab 01/15/17 18:25 Completed LACTATE, PLASMA [CHEM] Stat Lab 01/15/17 18:25 Completed LIPASE [CHEM] Stat Lab 01/15/17 18:25 Completed TEST-URINE [PREG] Stat Lab 01/15/17 20:25 Ordered URINALYSIS W/POSS RFLX CULT-1 [URINALYSIS] Stat Lab 01/15/17 19:30 Completed 0.9% Sodium Chloride Inj [Ns] 1,000 ml Med 01/15/17 20:21 Active IV 999 mls/hr Diphenhydramine [Benadryl] Med 01/15/17 20:21 Discontinued 25 mg IV NOW ONE Metoclopramide [Reglan] Med 01/15/17 20:21 Discontinued 10 mg IV NOW ONE Morphine Med 01/15/17 20:21 Discontinued 4 mg IV NOW ONE Ondansetron [Zofran] Med 01/15/17 20:21 Discontinued 4 mg IV NOW ONE Result Diagrams: 01/15/17 18:25 01/15/17 18:25 - CONSULTS/PCP/HOSPITALIST Notification #1 *Consult/PCP/Hospitalist*: Dr. rae Time Discussed: 20:30 Consult Disposition: Admit Departure - Departure Date of Disposition Decision: 01/15/17 Time of Disposition Decision: 20:31 DIAGNOSIS: Intractable abdominal pain Intractable nausea and vomiting Qualifiers: Vomiting type: cyclical vomiting Qualified Code(s): G43.A1 - Cyclical vomiting , intractable Disposition: ADMITTED INPATIENT 09 Certified Medical Emergency: Emergent Condition: Stable Referrals and Follow-Ups: Damon Amin MD [Primary Care Provider] - - Critical Care Note This patient required my direct & personal management of CC.: No Attestation - Physician/ ALEX Attestation Patient care was provided by Advanced Practice Provider:: Yes Advanced Practice Provider:: Gonzalez Meneses Advanced Practice Provider documentation review:: The Mid-level provider documentation, treatment plan and medical decision making was reviewed by the physician who agrees with all treatment and medical decision making by the MLP. The physician spent face to face time with patient:: Yes Advanced Practice Provider documentation review:: Supervising physician onsite and consulted in the evaluation and care of this patient. The physician did have a face to face encounter with the patient.
--- NOTE | 2017-01-15 21:24 | Diag Imaging Result Doc PS360 ---
EXAM: CT ANGIOGRM/PULMONARY ARTERIES INDICATION: Per Hospitalist service; hx clots, epigastric pain TECHNIQUE: Dose reduction protocol was used. In addition to standard thin section axial images, coronal MIPS were obtained. COMPARISON: 07/04/2013 FINDINGS: There is no evidence of pulmonary embolism. There is no evidence of aortic dissection or aneurysm. There are calcified right hilar lymph nodes indicating prior granulomatous disease. There are calcified granulomata in the right lower lobe. The lungs are clear, otherwise. There are no airspace consolidations. There is no pleural fluid collection and no pneumothorax. IMPRESSION: No evidence of pulmonary embolism or other definite acute chest pathology. Electronically signed by Dc Sparrow 01/15/2017 9:22 PM
--- NOTE | 2017-01-15 21:40 | Diag Imaging Result Doc PS360 ---
EXAM: FLAT/UPRIGHT ABD/1 VIEW CHEST INDICATION: intractable n/v TECHNIQUE: 4 views COMPARISON: Chest radiograph dated 06/04/2016 FINDINGS: There is contrast media in the renal collecting systems and urinary bladder from a very recent CTA chest. There are gastric metallic lucy projecting of the abdomen. There are unremarkable bowel gas and stool patterns. There is no obstructive bowel pattern. There is no evidence of large volume free abdominal gas. There is no evidence of organomegaly. There is evidence of prior granulomatous disease, stable. The lungs are grossly clear. There is no discrete pleural fluid collection or pneumothorax. The cardiomediastinal silhouette and central vasculature are grossly unremarkable. IMPRESSION: No evidence of acute pathology by plain radiograph. Electronically signed by Dc Sparrow 01/15/2017 9:37 PM
[2017-01-16] MEDS: NS 1,000 ML IV SCH ×4 (01:34→23:17)
--- NOTE | 2017-01-16 02:36 | HISTORY AND PHYSICAL ---
PRIMARY CARE PHYSICIAN: Dr. Amin. CHIEF COMPLAINT: Nausea, vomiting, abdominal pain x3 days. HISTORY OF PRESENTING ILLNESS: A 31-year-old obese female with a history of pulmonary embolism and is status post gastric sleeve has presented to the emergency department with 3 days history of nausea, vomiting, abdominal pain. The patient states that her abdomen was cramping and she was severely nauseated. She was evaluated in the ER and due to her intractable symptoms it was thought that we will place her in for observation for further evaluation and management. At the time of my examination, she had denied any headache, fever, chills, hemoptysis, melena, but complained of nausea, vomiting, abdominal discomfort. PAST MEDICAL HISTORY: Includes pulmonary embolism. PAST SURGICAL HISTORY: Gastric sleeve. ALLERGIES: Penicillin. CURRENT MEDICATIONS: Listed on medication reconciliation sheet. SOCIAL HISTORY: No history of smoking, alcohol or illicit drug use. FAMILY HISTORY: No history of coronary disease. REVIEW OF SYSTEMS: Twelve point review of systems is as in HPI. Other systems negative. PHYSICAL EXAMINATION: GENERAL: Cooperative, friendly, obese female. She is resting comfortably now. VITAL SIGNS: Temperature 98.8 degrees, pulse 82, respirations 17, blood pressure 129/80. HEENT: Atraumatic, normocephalic. Extraocular movements intact. PERRLA. NECK: Supple. CHEST: Clear to auscultation. CARDIOVASCULAR: Regular rate and rhythm. ABDOMEN: Soft, obese, positive bowel sounds. EXTREMITIES: No edema. NEUROLOGIC: She is awake, alert, oriented x3. GENITOURINARY: No bladder distention. SKIN: Warm. LABORATORY STUDIES: WBC 4.63, hemoglobin 14.5, hematocrit 44.6, platelets 263,000. Sodium 147, potassium 3.3, chloride 104, CO2 is 23, BUN is 7, creatinine 0.7, glucose is 81. ASSESSMENT: This is a 31-year-old morbidly obese female status post a gastric sleeve and history of pulmonary embolism off anticoagulation due to menorrhagia had presented to emergency department with 3 days history of worsening nausea, vomiting, abdominal pain. She was evaluated in the ER and due to her intractable symptoms it was thought that we will place her for observation for further evaluation and management. 1. Nausea, vomiting and abdominal pain. 2. History of pulmonary embolism. Recent CT angiogram is negative for PE. PLAN: 1. We will admit patient to medical floor with telemetry. 2. Continue supportive treatment with IV fluids, antiemetics, pain control. 3. Put patient on DVT prophylaxis SCD. 4. We will continue to follow and reassess. cc: Moncho Jaffe MD
[2017-01-16 05:50] LABS: BASO% 0.5 % (0.0-0.8); EOS# 0.07 X1000 (0.0-0.7); EOS% 1.7 % (0.0-10.0); HEMATOCRIT 42.4 % (37.0-47.0); HEMOGLOBIN 13.7 g/dL (12.0-16.0); LYMPH# 1.96 X1000 (1.2-3.4); LYMPH% 47.3 % (20.5-51.1); MCH 26.3 PG (27-31); MCHC 32.3 g/dL (33-37); MCV 81.5 FL (81-99); MONO# 0.55 X1000 (0.11-0.59); MONO% 13.3 % (1.7-9.3); MPV 11.5 FL (7.4-10.4); NEUT% 37.2 % (42.2-75.2); PLT 251 X1000 (130-400)
[2017-01-16 06:04] LABS: AGAP 20; BUN 6 mg/dL (8-22); CALCIUM 9.6 mg/dL (8.8-10.2); CHLORIDE 108 mmol/L (98-107); COSMO 297; POTASSIUM 3.6 mmol/L (3.5-5.1); SODIUM 151 mmol/L (136-145); TCO2 23 mmol/L (25-35)
[2017-01-16 07:09] LABS: MANUAL DIFF NEEDED? YES
[2017-01-16 09:36] LABS: EOS 2 % (1-10); LYMPHS 48 % (21-51); MONO 12 % (1-9)
[2017-01-16] MEDS: ZOFRAN IV PRN ×3 (10:17→21:25)
[2017-01-16] MEDS: SODIUM CHLORIDE 0.9% INJ SCH (14:11)
[2017-01-16] MEDS: PROTONIX IV SCH (14:11)
[2017-01-16] MEDS: MORPHINE IV PRN (14:12)
[2017-01-16 15:52] LABS: AGAP 18; BUN 6 mg/dL (8-22); CALCIUM 9.3 mg/dL (8.8-10.2); CHLORIDE 110 mmol/L (98-107); COSMO 299; POTASSIUM 3.5 mmol/L (3.5-5.1); SODIUM 152 mmol/L (136-145); TCO2 24 mmol/L (25-35)
--- NOTE | 2017-01-16 15:53 | PROGRESS NOTE ---
DATE: 01/16/2017 SUBJECTIVE: This patient is still complaining of epigastric pain, nausea and vomiting have been controlled with ondansetron. I will add pantoprazole twice a day, and I will continue with the IV fluids. I will ask, right now, for a new BMP to see the sodium level. Sodium in the morning was 151. Probably, if the sodium is still high, I will need to switch her to D5W. OBJECTIVE: Vital Signs: Temperature 98 degrees, pulse 78, respiratory rate 16, blood pressure 131/69, oxygen saturation 98% on room air. HEENT: Head normocephalic. No trauma. PERRLA. Neck: Supple. No JVD. No masses. Central trachea. Chest: Clear to auscultation. No wheezing. No rales. Abdomen: Soft, tender to palpation at the level of the epigastric area. Eng sign is negative. No rebound. Positive bowel sounds. Extremities: No edema. No clubbing. No cyanosis. Neurological: The patient is alert and oriented x3. No focal neurological deficits. LABORATORY: WBC 4.1, hemoglobin 13.7, hematocrit 42.4, platelets 251,000. Sodium 151, potassium 3.6, chloride 108, bicarbonate 23, BUN 6, creatinine 0.6, glucose 83, calcium 9.6. ASSESSMENT AND PLAN: 1. Epigastric pain. I will put this patient on morphine p.r.n. She is still complaining of pain. I also will continue with IV fluids. 2. Nausea and vomiting. This has been controlled with ondansetron. We will continue with the same management. If the epigastric pain, and nausea and vomiting continue, probably we will need to get Gastroenterology for evaluation. 3. History of pulmonary edema. We did a CT angiogram that did not show any abnormality. We will continue to monitor. 4. Morbid obesity. Aware. BMI is 51.9. cc: Alejandro Raya MD
[2017-01-17] MEDS: ZOFRAN IV PRN ×4 (02:14→21:25)
[2017-01-17] MEDS: PROTONIX IV SCH ×2 (02:14→14:17)
[2017-01-17 05:58] LABS: MANUAL DIFF NEEDED? NO
[2017-01-17 06:24] LABS: BASO% 0.3 % (0.0-0.8); EOS# 0.08 X1000 (0.0-0.7); HEMATOCRIT 41.3 % (37.0-47.0); HEMOGLOBIN 13.2 g/dL (12.0-16.0); LYMPH# 1.71 X1000 (1.2-3.4); LYMPH% 43.7 % (20.5-51.1); MCH 26.4 PG (27-31); MCV 82.6 FL (81-99); MONO# 0.41 X1000 (0.11-0.59); MONO% 10.5 % (1.7-9.3); MPV 11.8 FL (7.4-10.4); NEUT% 43.5 % (42.2-75.2); PLT 223 X1000 (130-400)
[2017-01-17 06:40] LABS: AGAP 18; BUN 6 mg/dL (8-22); CALCIUM 9.1 mg/dL (8.8-10.2); CHLORIDE 110 mmol/L (98-107); COSMO 298; POTASSIUM 3.3 mmol/L (3.5-5.1); SODIUM 152 mmol/L (136-145); TCO2 24 mmol/L (25-35)
[2017-01-17] MEDS: D5W 1,000 ML IV SCH ×3 (09:18→23:25)
[2017-01-17] MEDS ORDERED: DULCOLAX PR ONE (09:36)
--- NOTE | 2017-01-17 10:16 | Diag Imaging Result Doc PS360 ---
EXAM: CT ABDOMEN/PELVIS W/O CONTRAST HISTORY: abdominal pain/gastric sleeve TECHNIQUE: CT abdomen and pelvis without contrast. COMPARISON: 12/27/2016 FINDINGS: There is a large amount of artifact created due to the patient's body habitus. Spleen is not enlarged. Normal noncontrasted liver. No inflammation about the gallbladder or pancreas. Normal adrenal glands. No renal stones. No hydronephrosis. Normal aorta. There are metal clips about the greater curvature of stomach believed to be a gastric sleeve. No free fluid. No free air. No bowel obstruction. Normal appendix. No abscess. Urinary bladder is moderately distended and appears normal. Normal ureters. No pelvic mass. IMPRESSION: No abnormality identified. Electronically signed by Sony Freeman 01/17/2017 10:14 AM
[2017-01-17] MEDS ORDERED: POTASSIUM CHLORIDE 60 MEQ in NS 500 ML IV ONE (13:20)
[2017-01-17] MEDS: SODIUM CHLORIDE 0.9% INJ SCH (14:16)
[2017-01-17] MEDS: CARAFATE LIQUID PO SCH ×2 (14:16→21:25)
[2017-01-17] MEDS: MIRALAX PO SCH ×2 (14:35→21:41)
[2017-01-17] MEDS: NS 1,000 ML IV SCH (14:53)
[2017-01-17] MEDS: MORPHINE IV PRN ×2 (15:03→21:24)
[2017-01-17] MEDS ORDERED: SODIUM CHLORIDE 0.9% INJ ONE (15:19)
[2017-01-17] MEDS ORDERED: PHENERGAN IV ONE (15:19)
[2017-01-17] MEDS ORDERED: DECADRON IV ONE (15:30)
--- NOTE | 2017-01-17 20:51 | PROGRESS NOTE ---
DATE: 01/17/2017 SUBJECTIVE: The patient complains of persistent nausea, vomiting and abdominal pain. The patient states she is not had a bowel movement 5 days. OBJECTIVE: Vital Signs: Temperature 98.6 degrees, blood pressure 142/69, heart rate 70, respirations 16, O2 saturations 100% on room air. General: This is a morbidly obese female, lying in bed, in no acute distress. Head: Normocephalic, atraumatic. Heart: S1, S2. Normal. Regular rate and rhythm. Lungs: Equal air entry bilaterally. No crackles. No rales. Abdomen: Positive bowel sounds. Soft, nontender, nondistended. Extremities: No edema. No cyanosis. No calf tenderness. Neurologic: The patient is alert and oriented x3. LABORATORY AND IMAGING: White blood cell count 3.9, hemoglobin 13, hematocrit 41, platelets 223,000. Sodium 152, potassium 3.3, chloride 110, CO2 24, BUN 6, creatinine 0.7, glucose 77, phosphorus 3.5, magnesium 1.7. CT of the abdomen and pelvis unremarkable. ASSESSMENT AND PLAN: 1. Persistent nausea, vomiting and abdominal pain. A CT of the abdomen and pelvis was done this morning, which was noted to be unremarkable. The patient has been started on laxative therapy. Also, the patient was discussed with Dr. Pascual Flynn at [place], stated to start the patient on Decadron and to consider Emend. He also stated that the patient likely needs endoscopy. We will defer this to the materials recycler. We will continue on antiemetic therapy and will also order a gastric emptying study to be done tomorrow. 2. Constipation. Continue on Dulcolax. The patient is unable to tolerate MiraLAX at this time. 3. Morbid obesity. Aware. 4. Status post gastric sleeve. Aware. 5. Hypokalemia. We will replace the patient's potassium. 6. Deep vein thrombosis prophylaxis. We will start the patient on Lovenox. 7. Gastrointestinal prophylaxis. We will continue on IV Protonix. cc: Franny Carreno MD
[2017-01-17] MEDS: LOVENOX SUBQ SCH (21:25)
[2017-01-17] MEDS: DULCOLAX PR SCH (21:41)
[2017-01-18] MEDS ORDERED: DECADRON IV ONE
[2017-01-18] MEDS: CARAFATE LIQUID PO SCH ×4 (01:44→21:39)
[2017-01-18] MEDS: PROTONIX IV SCH ×2 (01:50→13:33)
--- NOTE | 2017-01-18 03:51 | CONSULTATION ---
DATE OF CONSULTATION: 01/17/2017 ATTENDING PHYSICIAN: Dr. Carreno. PRIMARY CARE PHYSICIAN: Dr. Amin. PRIMARY BARIATRIC SURGEON: Dr. Dorman at [facility]. REASON FOR CONSULTATION: Nausea, vomiting, dysphagia, and constipation. HISTORY OF PRESENT ILLNESS: Ms. Parra is a 31-year-old female who was admitted on 01/16/2017 with a 3-day history of nausea, vomiting, abdominal pain, and constipation. She was admitted here to the hospital on 12/27/2016. At that time we were planning to do an EGD but we spoke to Dr. Dorman, the bariatric surgeon at [place]. He suggested an upper GI Gastrografin study be performed and it showed no evidence of any contrast extravasation from the surgical site and no evidence of any obstruction. The patient was supposed to follow up with Dr. Dorman at [facility] but the patient had not gotten an appointment yet. According to the patient, she was having difficulty with swallowing and any pills or liquids she took were coming back up and she was getting more nauseous and getting dehydrated and that is why she was admitted to the hospital. In the hospital for the last 24 hours she has been given IV fluids, IV antiemetics, IV PPIs, and given Dulcolax suppository. She is feeling better overall with hydration but she still cannot swallow pills. PAST MEDICAL HISTORY: 1. Pulmonary embolism. 2. Obesity. PAST SURGERY HISTORY: Gastric sleeve. ALLERGIES: Penicillin. MEDICATIONS: In the hospital include: 1. Bisacodyl 10 mg per rectum once daily. 2. Dextrose 5% NS. 3. Morphine 2 mg IV q.4 hour as needed. 4. Zofran 4 mg IV q.4 hours as needed. 5. Protonix 40 mg IV b.i.d. 6. MiraLAX 17 g p.o. b.i.d. 7. Carafate 1 g q.6 hours. 8. She is currently on clear liquid diet. REVIEW OF SYSTEMS: Denies any current fevers, rigors, chills, chest pain, shortness of breath, dyspnea on exertion. Denies any genitourinary complaints. Did lose almost 30 pounds in the last 2 weeks. Denies any vomiting blood or passing blood in the stools. She has been constipated for 1 week. PHYSICAL EXAMINATION: Vital Signs: Temperature of 98 degrees, pulse rate 71, respiratory rate 20, blood pressure 121/60, saturating 100% on room air. Body weight of 312 pounds, BMI 51.9 kg/m2. General Appearance: Obese, lying in bed, in no distress. HEENT: No pallor. No icterus. Pupils equal, react to light. Neck: Supple. Chest: Decreased breath sounds. Cardiovascular: Regular rate and rhythm. No murmur. Abdomen: Obese, soft, nontender, nondistended. Bowel sounds are present. No guarding. Extremities: No cyanosis, clubbing, and edema. Neurologic: She is alert, awake, oriented. LABS: Hemoglobin and hematocrit are 13.2 and 41.3, white count 3.91, platelet count of 223,000, MCV of 82.6. Sodium 132, potassium 3.3, chloride 100, bicarb 20, anion gap 18, BUN of 6, creatinine 0.7, glucose of 77, calcium 9.1, amylase of 48, lipase of 53, AST 19 , ALT 32, total protein 8.1, albumin of 4.1, lactate of 1.3. Urinalysis showing moderate blood, moderate bilirubin. Blood cultures x2 have been negative after [address] She [address] a [address] scan done of the abdomen and pelvis without contrast which shows large amount of artifact related to the patient body habitus. Metal clips about the greater curvature of the stomach, believed to be gastric sleeve. No free fluid. No free air. No bowel obstruction. Normal appendix. Urinary bladder is moderately distended. Impression: No abnormality detected or identified. She had a pulmonary arteriogram on admission which showed no evidence of pulmonary embolism or other acute chest pathology. IMPRESSION AND PLAN: 1. Nausea and vomiting after gastric sleeve surgery on 12/08/[address] Dorman at [facility] complicated with recurrent and persistent nausea, vomiting, decreased p.o. intake, dehydration. 2. Constipation. 3. Obesity. 4. Dysphagia. RECOMMENDATIONS: 1. I offered the patient an upper GI swallow evaluation with barium/ Gastrografin. The patient wants to be transferred to [facility] for further workup as she has seen them in the past. 2. In the interim we will continue patient on IV Protonix b.i.d. and Carafate 1 g 6 hours. 3. We will treat the patient's constipation with MiraLAX 17 mg b.i.d. and Dulcolax at bedtime. 4. Continue on IV antiemetics, IV pain control, and IV fluids for now. 5. I have discussed the plan of care with the nurse who is planning to call the primary care physician/hospitalist to mediate the transfer to [facility] to Dr. Dorman , the bariatric surgeon at [facility]. If anything changes we will be available to help. Further recommendations pending hospital course. cc: MD Damon Henry MD Dr. Schmitt Manish Arora, MD MTDD
[2017-01-18] MEDS: D5W 1,000 ML IV SCH ×4 (05:11→18:33)
[2017-01-18 05:48] LABS: MANUAL DIFF NEEDED? NO
[2017-01-18 06:08] LABS: EOS# 0.02 X1000 (0.0-0.7); EOS% 0.6 % (0.0-10.0); HEMATOCRIT 41.8 % (37.0-47.0); HEMOGLOBIN 13.5 g/dL (12.0-16.0); LYMPH# 0.57 X1000 (1.2-3.4); MCH 26.5 PG (27-31); MCHC 32.3 g/dL (33-37); MCV 82.1 FL (81-99); MONO# 0.07 X1000 (0.11-0.59); MONO% 2.2 % (1.7-9.3); MPV 12.2 FL (7.4-10.4); NEUT% 79.2 % (42.2-75.2); PLT 200 X1000 (130-400); RBC 5.09 XMIL (4.2-5.4)
[2017-01-18] MEDS ORDERED: MAGNESIUM SULFATE 2 GM/S.W.I. 2 GM/50 ML IVPB IV ONE (06:12)
[2017-01-18 06:22] LABS: AGAP 19; BUN 4 mg/dL (8-22); CALCIUM 9.5 mg/dL (8.8-10.2); CHLORIDE 106 mmol/L (98-107); COSMO 292; POTASSIUM 3.5 mmol/L (3.5-5.1); SODIUM 147 mmol/L (136-145); TCO2 22 mmol/L (25-35)
[2017-01-18] MEDS ORDERED: POTASSIUM PHOSPHATE 30 MMOL in NS 250 ML IV ONE (07:00)
[2017-01-18] MEDS: MORPHINE IV PRN (08:44)
[2017-01-18] MEDS: ZOFRAN IV PRN ×2 (08:44→13:33)
[2017-01-18] MEDS: MIRALAX PO SCH ×2 (08:45→21:40)
[2017-01-18] MEDS: SODIUM CHLORIDE 0.9% INJ SCH (13:33)
--- NOTE | 2017-01-18 20:12 | DISCHARGE SUMMARY ---
ADMISSION DATE: 01/16/2017 DISCHARGE DATE: 01/18/2017 FINAL DISCHARGE DIAGNOSES: 1. Persistent nausea and vomiting status post gastric sleeve. 2. Constipation. 3. Hypernatremia. 4. Morbid obesity. 5. Hypokalemia. 6. Hypophosphatemia. 7. Hypomagnesemia. IMAGING PERFORMED DURING HOSPITALIZATION: 1. Abdominal x-ray performed on 01/15/2017 that revealed no acute pathology. 2. Pulmonary arteriogram performed on 01/15/2017 that revealed no evidence of pulmonary embolism or chest pathology. 3. CT of the abdomen and pelvis performed on 01/17/2017 that revealed no acute pathology. CONSULTATIONS REQUESTED DURING THIS HOSPITAL STAY: GI consultation. HOSPITAL COURSE: Ms. Parra is a 31-year-old female with a history of gastric sleeve on 12/08/2016, who presented to the ER with complaints of persistent nausea, vomiting, abdominal pain and constipation. While the patient was admitted to the Hospitalist Service imaging was performed of the chest, abdomen, pelvis, and no acute pathology was found. GI was consulted for further recommendations. The patient reports that ever since she had the gastric sleeve placed she has not been feeling well or been able to eat properly. All attempts to feed the patient were unsuccessful. The patient was unable to tolerate liquids or solids. The patient was given a suppository daily and was able to have small bowel movements. The patient was noted to be dehydrated and hypernatremic, and so she was placed on D5W. The patient was also noted to have electrolyte imbalances all of which were replaced . The case was discussed with the patient's bariatric surgeon, Dr. Emilio Dorman on 01/18/2017 and the patient was accepted for transfer to [facility] for further treatment and evaluation. DISCHARGE MEDICATIONS: 1. Dulcolax 10 mg per rectum at bedtime. 2. Lovenox 40 mg subcutaneous every 24 hours. 3. Protonix 40 mg IV every 12 hours. 4. Zofran 4 mg IV every 4 hours p.r.n. 5. D5W at 100 mL an hour. DISCHARGE PLAN: The patient will be transported to [place] under the care of Dr. Emilio Dorman. cc: MD Emilio Henry MD
[2017-01-18] MEDS: DULCOLAX PR SCH (21:40)
[2017-01-18] MEDS: LOVENOX SUBQ SCH (22:38)
[2017-01-18 23:28] VITALS: BP 133/76
== END 2017-01-19 00:23 | disposition short-term general hospital (02) ==
LOC: SUPCPDRO → ED 17:55 → 4N 17:55 → SUATTDRO 01-16 01:06 → OBSVTOIN 01-16 01:06
PROVIDERS: ATTEND Internal Medicine

== ENCOUNTER 2019-03-23 00:44 | Inpatient (IN) ==
--- NOTE | 2019-03-23 01:55 | PROVIDER DOCUMENTATION ---
This chart was entered by Dianne Pimentel Scribe, acting as scribe for Luke Patino MD. HPI-Female /OB/Breast - General Chief Complaint: [employer] Related Stated Complaint: OB RELATED Time Seen by Provider: 03/23/19 00:57 Source: reports: patient Allergies/Adverse Reactions: Patient Allergies Allergy/AdvReac Type Severity Reaction Status Date / Time Penicillins Allergy Unknown Verified 09/26/18 10:08 Home Medications: Home Medication List Medication Instructions Recorded Confirmed Last Taken Type Cyanocobalamin (Vitamin B-12) 1,000 mcg IJ DIRECTED 12/27/16 09/26/18 09/12/18 History [Cyanocobalamin Injection] Pnv No.95/Ferrous Fum/Folic AC 1 ea PO DAILY 09/26/18 09/26/18 09/26/18 History [ Caplet] - History of Present Illness-Female /OB Nature of Presenting Problem: pt is 33/F presenting to ED at 32 weeks . Pt sts that she has been having contractions all day and that she feels like fluid is leaking. Pt was seen this AM and told that she was not leaking fluid and that it was urine, pt does not agree. She is now having back to back contractions. Does patient report she is ?: Yes Location of complaint: reports: other (contractions) Radiation: reports: none Quality of Pain: reports: aching, cramping, tightness Severity in ED: reports: moderate, severe Onset/Duration: reports: this morning Timing: reports: getting worse Context/Activities at Onset: reports: none Vaginal Symptoms: reports: other (possible fluid leakage) Vaginal Bleeding Amount: None Urinary Symptoms: reports: no symptoms Related Symptoms: reports: vaginal fluid leakage, uterine contractions Leakage of Fluid: mild Modifying Factors: improves with: nothing Associated Symptoms: reports: denies symptoms Similar Symptoms Previously?: No Recently seen or treated by another doctor?: Yes (this AM.) - LMP/ History : 1 Care: OB doctor Weeks/Months: 32 Review of Systems - Adult - REVIEW OF SYSTEMS - ADULT Constitutional: reports: no symptoms reported Eyes: reports: no symptoms reported Ears, Nose, Mouth & Throat: reports: no symptoms reported Cardiovascular: reports: no symptoms reported Respiratory: reports: no symptoms reported Gastrointestinal: reports: abdominal pain. denies: nausea, vomiting Genitourinary: reports: no symptoms reported Musculoskeletal: reports: no symptoms reported Integumentary: reports: no symptoms reported Neurological: reports: no symptoms reported. denies: dizziness/vertigo, headache/migraines Psychiatric: reports: no symptoms reported Endocrine: reports: no symptoms reported Hematologic/Lymphatic: reports: no symptoms reported Allergic/Immunologic: reports: no symptoms reported All Other Systems: Reviewed and Negative Past History - Adult - PAST MEDICAL HISTORY-ADULT Review of Records: reports: Old Records Reviewed, Nursing Assessment Review, Medications Reviewed, Social history reviewed & non-contributory. Major Childhood Illnesses: reports: denies history Cardiovascular: reports: blood clots (PE), other (PE- no longer taking anticoagulants.) Respiratory: reports: other (Pulmonary Embolus) Gastrointestinal: reports: denies history Obstetrical/Gynecological: reports: denies history Genitourinary: reports: denies history Musculoskeletal: reports: denies history Neurological: reports: denies history Psychiatric: reports: denies history Endocrine/Immune: reports: anemia (on iron tablets) Other Conditions: reports: denies history - PRIOR SURGERIES/PROCEDURES Surgical/Procedure History: reports: recent surgery (gastric sleeve on 12/08/16), other (d&c, bladder surgery,) - IMMUNIZATION STATUS Childhood Immunizations: See Nurse Assessment Flu Vaccine: See Nurse Assessment - FAMILY HISTORY Family History: reviewed, not pertinent - SOCIAL HISTORY Smoking: denies, non-smoker Substance Use: none/never Alcohol Use Frequency: never Living Situation: family Physical Exam-General - PHYSICAL EXAM-ADULT Initial Vital Signs Reviewed: Yes - CONSTITUTIONAL General Appearance: appears well, alert, moderate distress - EYES Eyes: PERRL/EOMI, pink conjunctivae - HEAD, EARS, NOSE, MOUTH & THROAT HENMT: moist mucous membranes - NECK Neck: non-tender, full range of motion, supple, normal inspection - RESPIRATORY Respiratory: lungs clear - CARDIOVASCULAR Cardiovascular: regular rate, rhythm - GASTROINTESTINAL (ABDOMEN) Abdominal Exam: other (gravid abdomen) - MUSCULOSKELETAL Back Exam: normal inspection, no CVA tenderness, no vertebral tenderness Extremity: normal range of motion, non-tender, normal gait, normal inspection - SKIN Integumentary: normal color, warm/dry - NEUROLOGIC Neurologic: edi programmer analyst II-XII nml as tested, grossly normal, no motor/sensory deficits, abnormal cerebellar tests, abnormal edi programmer analyst II-XII - PSYCHIATRIC Psych/Mental Status: normal mood/affect, normal thought content, normal thought process, oriented x 3 Progress - PLAN OF CARE/RESULTS Progress/Plan/Lab Results: Vital Signs - 8 hr 03/23/19 00:47 Temperature 97.9 F Pulse Rate 87 Respiratory Rate 18 Blood Pressure 133/76 O2 Sat by Pulse Oximetry 100 - CONSULTS/PCP/HOSPITALIST Notification #1 *Consult/PCP/Hospitalist*: Dr Nguyen Time Discussed: 01:30 Reason/Comments: agreed to transfer pt. Departure - Departure Date of Disposition Decision: 03/23/19 Time of Disposition Decision: 01:52 DIAGNOSIS: contractions Disposition: ADMITTED INPATIENT 09 Certified Medical Emergency: Emergent Condition: Fair - Critical Care Note This patient required my direct & personal management of CC.: No Attestation - Physician/ ALEX Attestation Patient care was provided by Advanced Practice Provider:: No The physician spent face to face time with patient:: Yes Advanced Practice Provider documentation review:: Supervising physician onsite and consulted in the evaluation and care of this patient. The physician did have a face to face encounter with the patient. This chart was documented by the indicated scribe, (Dianne Pimentel, Scribe) and accurately reflects the services I performed and decisions made by me, Luke Patino MD, as attested by the provider's signature.
[2019-03-23] MEDS ORDERED: PEPCID IV PRN (03:06)
[2019-03-23] MEDS ORDERED: PEPCID PO PRN (03:06)
[2019-03-23] MEDS ORDERED: ZOFRAN IV PRN (03:06)
[2019-03-23] MEDS ORDERED: REGLAN PO ONE (03:06)
[2019-03-23] MEDS ORDERED: TYLENOL PO PRN (03:06)
[2019-03-23] MEDS ORDERED: PEPCID PO ONE (03:06)
[2019-03-23] MEDS ORDERED: XYLOCAINE-MPF 1% INJ PRN (03:13)
[2019-03-23] MEDS ORDERED: HYDROXYZINE IM PRN (03:13)
[2019-03-23] MEDS ORDERED: M-M-R II VACCINE SUBQ ONE (03:13)
[2019-03-23] MEDS ORDERED: BENADRYL IV PRN (03:13)
[2019-03-23] MEDS ORDERED: CYTOTEC PO PRN (03:13)
[2019-03-23] MEDS ORDERED: BENADRYL PO PRN (03:13)
[2019-03-23] MEDS ORDERED: ATARAX PO PRN (03:13)
[2019-03-23] MEDS ORDERED: MOTRIN PO PRN (03:13)
[2019-03-23] MEDS ORDERED: MINERAL OIL PO PRN (03:13)
[2019-03-23] MEDS ORDERED: PERI MEDS (DERMOPLAST/NUPERCAINAL/TUCKS) MISC PRN (03:13)
[2019-03-23] MEDS ORDERED: PITOCIN IM PRN (03:13)
[2019-03-23] MEDS ORDERED: BOOSTRIX VACCINE IM ONE (03:13)
[2019-03-23] MEDS ORDERED: AMBIEN PO PRN (03:13)
[2019-03-23] MEDS ORDERED: SODIUM CHLORIDE 0.9% INJ SCH (03:15)
[2019-03-23] MEDS ORDERED: PITOCIN 20 UNITS/NS 20 UNITS/1,000 ML IV.SOLN INJ SCH (03:15)
[2019-03-23] MEDS ORDERED: PITOCIN 30 UNITS/NS 30 UNIT/500 ML IV.SOLN IV SCH (03:15)
--- NOTE | 2019-03-23 06:19 | HISTORY AND PHYSICAL ---
HISTORY OF PRESENT ILLNESS: The patient is a 33-year-old G2, P0, 0-1-0 at 31 weeks and 6 days who presents to Labor and Delivery in active labor labor. The patient was seen today at [facility] and complains of contractions. Reports receiving IV fluids and discharged home. The patient returned to [facility] with complaints of contraction, and found to be in active labor. The patient transferred to Labor and Delivery at [facility] where she delivered precipitously a viable female infant. On presentation, reports regular contractions, unknown leakage of fluid, negative vaginal bleeding, and positive movement. PAST MEDICAL HISTORY: Significant for bilateral pulmonary embolism and DVT associated with combined hormonal contraceptive use. MEDICATIONS: vitamins, therapeutic Lovenox 40 mg b.i.d. PAST SURGICAL HISTORY: Gastric sleeve 12/08/2016, hysteroscopy, dilation and curettage for uterine polyps, bladder surgery performed as a child, and removal of bilateral sweat glands from under arms. OBSTETRICAL HISTORY: G2, P0, 0-1-0, one prior 1st trimester spontaneous . MEDICAL LAB TECH INSTRUCTOR HISTORY: Denies any STD exposure. ALLERGIES: Penicillin, unknown reaction. FAMILY HISTORY: Mother and father with hypertension and diabetes. Brother in his 40s from massive heart attack. SOCIAL HISTORY: Denies tobacco, alcohol, or drug use. PHYSICAL EXAMINATION: VITAL SIGNS: Temperature 97.9 degrees Fahrenheit, pulse rate 87, respirations 18, blood pressure 133/76, and O2 sats 100% on room air. Weight 249 pounds, height 5 feet 4 inches, and BMI 42.7 kg/m2. GENERAL: No acute distress. Alert, awake, and oriented x3. CARDIOVASCULAR: Regular rate and rhythm. RESPIRATORY: Clear to auscultation. ABDOMEN: Gravid. Nontender to palpation. EXTREMITIES: No calf tenderness. Negative edema. PELVIC: Sterile vaginal exam, 8 cm dilated, 100% effaced, and +1 station. Electronic monitoring. Positive heart rate 130's. ASSESSMENT: Mrs. Parra is a 33-year-old G2, P0, 0-1-0 at 31 weeks and 6 days who presents to Labor and Delivery in active labor. PLAN: 1. Admit to Labor and Delivery. 2. Anticipate precipitous delivery. 3. Plan for prophylactic antibiotics secondary to GBS unknown and . 4. Continuous electronic monitoring. 5. Will continue therapeutic Lovenox . 6. Pediatrics aware of anticipated premature delivery. 7. Estimated weight 4-1/2 pounds. 8. Anticipated vaginal delivery.
--- NOTE | 2019-03-23 07:15 | OPERATIVE NOTE ---
PROCEDURE DATE: 03/23/2019 PROCEDURE PERFORMED: Spontaneous vaginal delivery. SURGEON: Dr. Nena Kraus. GUM ROLLING MACHINE OPERATOR: None. DESCRIPTION OF PROCEDURE: Patient delivered a viable female infant at 31 weeks and 6 days, weighing 4 pounds 3 ounces at 19:10 with Apgars of 4, 7 and 8 at one, five and ten minutes respectively. The vertex delivered spontaneously over an intact perineum. No nuchal cord was identified. The anterior shoulders were delivered atraumatically by maternal expulsive efforts with the assistance of downward traction. The posterior shoulder delivered spontaneously. The cord was clamped and cut and was passed off to waiting business account executive staff to be assessed by presenting business account executive. Cord blood was obtained for blood gases. To enhance uterine contractions, IV oxytocin was administered. The perineum and vagina were inspected for lacerations. No lacerations were identified. Unable to fully inspect cervix. The patient will not allow full exam. Uterine fundus was noted to be firm status post IM Pitocin 10 units. Estimated blood loss 200 mL.
[2019-03-23] MEDS: LOVENOX SUBQ SCH ×2 (09:15→21:05)
[2019-03-23] MEDS ORDERED: MOTRIN LIQUID PO PRN (09:55)
[2019-03-23] MEDS ORDERED: TYLENOL LIQUID PO PRN (09:56)
[2019-03-23] MEDS ORDERED: BENADRYL LIQUID PO PRN (09:58)
[2019-03-23 15:37] LABS: BASO# 0.01 X1000 (0.0-0.2); BASO% 0.1 % (0.0-0.8); HEMATOCRIT 37.9 % (37.0-47.0); HEMOGLOBIN 12.5 g/dL (12.0-16.0); IMM GRAN# 0.02 X1000 (0.0-0.04); IMM GRAN% 0.2 % (0.0-0.5); LYMPH# 0.92 X1000 (1.2-3.4); LYMPH% 9.3 % (20.5-51.1); MCV 84.8 FL (81-99); MONO# 0.55 X1000 (0.11-0.59); MONO% 5.6 % (1.7-9.3); MPV 10.7 FL (7.4-10.4); NEUT# 8.35 X1000 (1.4-6.5); NEUT% 84.8 % (42.2-75.2); PLT 263 X1000 (130-400); RBC 4.47 XMIL (4.2-5.4); RDW 12.8 % (11.5-14.5); WBC 9.85 X1000 (4.8-10.8)
[2019-03-23] MEDS ORDERED: SENNA LIQUID PO SCH (21:00)
[2019-03-23] MEDS ORDERED: PERICOLACE PO SCH (21:00)
[2019-03-23] MEDS ORDERED: COLACE LIQUID PO SCH (21:00)
[2019-03-24 06:21] LABS: BASO# 0.01 X1000 (0.0-0.2); BASO% 0.2 % (0.0-0.8); EOS# 0.02 X1000 (0.0-0.7); EOS% 0.3 % (0.0-10.0); HEMATOCRIT 36.2 % (37.0-47.0); HEMOGLOBIN 11.9 g/dL (12.0-16.0); LYMPH# 2.24 X1000 (1.2-3.4); LYMPH% 38.6 % (20.5-51.1); MCHC 32.9 g/dL (33-37); MCV 85.2 FL (81-99); MONO# 0.49 X1000 (0.11-0.59); MONO% 8.4 % (1.7-9.3); MPV 9.8 FL (7.4-10.4); NEUT# 3.04 X1000 (1.4-6.5); NEUT% 52.5 % (42.2-75.2); PLT 241 X1000 (130-400); RBC 4.25 XMIL (4.2-5.4); RDW 12.9 % (11.5-14.5)
--- NOTE | 2019-03-24 08:01 | OB/GYN PROGRESS NOTE ---
Progress Note OB - . Patient Problems: Current Active Problems Problem Status Onset contractions Acute OB Progress Note: Vital Signs - 24 hr 03/23/19 12:00 03/23/19 16:00 03/23/19 20:00 Temperature 97.7 F 98.8 F 96.7 F L Pulse Rate 73 73 75 Respiratory Rate 18 18 16 Blood Pressure 138/79 108/69 125/63 O2 Sat by Pulse Oximetry 100 100 99 03/23/19 23:40 03/24/19 04:39 Temperature 96.6 F L 97.1 F L Pulse Rate 75 72 Respiratory Rate 16 16 Blood Pressure 111/66 135/70 O2 Sat by Pulse Oximetry 99 100 Laboratory Results - last 24 hr 03/23/19 03/23/19 03/24/19 06:39 06:59 06:05 WBC 9.85 5.80 RBC 4.47 4.25 Hgb 12.5 11.9 L Hct 37.9 36.2 L MCV 84.8 85.2 MCH 28.0 28.0 MCHC 33.0 32.9 L RDW Std Deviation 12.8 12.9 Plt Count 263 241 MPV 10.7 H 9.8 Immature Gran % (Auto) 0.2 0.0 Neut % (Auto) 84.8 H 52.5 Lymph % (Auto) 9.3 L 38.6 Mcclain % (Auto) 5.6 8.4 Eos % (Auto) 0.0 0.3 Baso % (Auto) 0.1 0.2 Immature Gran # (Auto) 0.02 0.00 Neut # (Auto) 8.35 H 3.04 Lymph # (Auto) 0.92 L 2.24 Mcclain # (Auto) 0.55 0.49 Eos # (Auto) 0.00 0.02 Baso # (Auto) 0.01 0.01 RPR NON-REACTIVE No complaints, denies PIH/orthostatic symptoms AF/VSS A&O NAD CTAB RRR S/ND/fundus firm Normal lochia No C/C/E PPD 2 s/p doing well - D/C home - follow up with OB in [place] 6 wks or prn.
[2019-03-24 08:29] VITALS: BP 109/66
[2019-03-24] MEDS: LOVENOX SUBQ SCH (09:14)
== END 2019-03-24 10:35 | disposition home or self-care (01) | DRG 807 ==
LOC: P.ED 00:44 → P.OPLD 01:22 → OPLD 01:22 → LD 01:44
PROVIDERS: ADMIT Student in an Organized Health Care Education/Training Program; ATTEND Student in an Organized Health Care Education/Training Program